=== PATIENT | female | born 1955 | race Caucasian/White ===

== ENCOUNTER 2016-10-05 22:38 | Inpatient (IN) | payer MEDICARE, MEDICAID ==
[~2016-10-05] VITALS: Ht 170.2 cm; Wt 66.6 kg
[~2016-10-05 22:38] MED LIST: B-CO-5 PO; BUME2TAB3 PO; CARV6.2551 PO; INSLANTI SC; LOPE2TAB PO; SEVE800T8 PO; TRAM50TA2 PO; ZOLP5TAB5 PO
[2016-10-06 00:03] LABS: Basophils # (auto) 0 uL; Basophils % (auto) 0.1 % (0.0-2.0); DEFINITIVE VIEW TRANSMISSION; Eosinophils # (auto) 0.3 uL; Eosinophils % (auto) 3.3 % (0.0-7.0); Hematocrit 31.7 % (36.0-46.0); Hemoglobin 9.9 g/dL (12.2-16.2); Lymphocytes # (auto) 0.7 uL; Lymphocytes % (auto) 8.3 % (10.0-50.0); Mean Corpuscular Hemoglobin 28.7 pg (28.0-32.0); Mean Corpuscular Hgb Conc. 31.1 g/dL (32.0-36.0); Mean Corpuscular Volume 92.5 fL (80.0-100.0); Mean Platelet Volume 9.4 fL (7.4-10.4); Monocytes # (auto) 0.5 uL; Monocytes % (auto) 5.4 % (0.0-12.0); Neutrophils # (auto) 7.2 uL; Neutrophils % (auto) 82.9 % (37.0-80.0); Platelet Count (auto) 218 10^3/uL (140-450); Red Cell Distribution Width 19.3 % (11.6-16.0); White Blood Cell 8.6 10^3/uL (4.4-10.8)
[2016-10-06 00:15] LABS: Partial Thromboplastin Time 32.2 sec (22.64-33.71)
[2016-10-06 00:16] LABS: Albumin 2.8 g/dL (3.4-5.0); BUN/Creatinine Ratio 6.7; Calcium 8.1 mg/dL (8.5-10.1); INR 1.48 (0.9-1.15); Magnesium 2.6 mg/dL (1.6-2.6); Potassium 4.1 mmol/L (3.5-5.1); Prothrombin Time 15.2 sec (9.37-12.3)
[2016-10-06 00:21] LABS: Bilirubin, Total 0.6 mg/dL (0.2-1.0); Total Protein 6.4 g/dL (6.4-8.2)
[2016-10-06 00:41] LABS: B-Type Natriuretic Peptide 2304.16 pg/mL (0-100); Temperature: 21.9 C (20.0-25.0)
[2016-10-06] MEDS ORDERED: FUROSEMIDE 40 MG/4 ML VIAL IV ONE (01:15)
[2016-10-06] MEDS ORDERED: ACETAMINOPHEN 325 MG TAB PO PRN (04:00)
[2016-10-06] MEDS ORDERED: NITROGLYCERIN 0.4 MG SL TAB SL PRN (04:00)
[2016-10-06] MEDS ORDERED: ONDANSETRON HCL 4 MG/2 ML VIAL IV PRN (04:00)
[2016-10-06] MEDS ORDERED: APIX5TAB PO (06:58)
[2016-10-06] MEDS: SODIUM CHLOR 0.9% PF (SALINE LOCK) 10ML VIAL IV SCH ×3 (07:53→22:28)
[2016-10-06 08:00] VITALS: BP 155/66
[2016-10-06 08:29] VITALS: BP 155/66
[2016-10-06 12:30] VITALS: BP 162/66
[2016-10-06 16:27] VITALS: BP 176/70
[2016-10-06] MEDS: CARVEDILOL 3.125 MG TAB PO SCH ×2 (18:30→22:27)
[2016-10-06] MEDS: cloNIDine HCL 0.1 MG TAB PO PRN (18:31)
[2016-10-06 20:00] VITALS: BP 154/85
[2016-10-06 22:12] VITALS: BP 154/85
[2016-10-07] MEDS: IPRATROPIUM BROM 0.5 MG/2.5ML INH SOL NEB SCH ×3 (00:58→11:34)
[2016-10-07] MEDS: ALBUTEROL SULF 2.5 MG/0.5ML(0.5%) NEB SOLN NEB SCH ×3 (00:58→11:34)
[2016-10-07 03:12] VITALS: BP 155/71
[2016-10-07 04:27] LABS: Urine Bilirubin Negative (Negative); Urine Color Yellow (Yellow); Urine Ketone Negative (Negative); Urine Nitrite Negative (Negative); Urine RBC 18 /hpf (0 - 4); Urine Squamous Epithelial Cell MANY /hpf (<5); Urine Urobilinogen Normal (Negative); Urine WBC Clumps PRESENT /hpf (None Seen)
[2016-10-07 04:32] LABS: Urine Blood 1+ /uL (Negative); Urine Glucose 2+ mg/dL (Normal)
[2016-10-07 05:00] VITALS: BP 159/66
[2016-10-07 06:11] LABS: Basophils # (auto) 0 uL; Basophils % (auto) 0.3 % (0.0-2.0); DEFINITIVE VIEW TRANSMISSION; Eosinophils # (auto) 0.3 uL; Eosinophils % (auto) 5.1 % (0.0-7.0); Hematocrit 30.2 % (36.0-46.0); Hemoglobin 9.9 g/dL (12.2-16.2); Lymphocytes # (auto) 0.6 uL; Mean Corpuscular Hemoglobin 29.8 pg (28.0-32.0); Mean Corpuscular Hgb Conc. 32.6 g/dL (32.0-36.0); Mean Corpuscular Volume 91.5 fL (80.0-100.0); Mean Platelet Volume 9.3 fL (7.4-10.4); Monocytes # (auto) 0.3 uL; Monocytes % (auto) 5.1 % (0.0-12.0); Neutrophils # (auto) 5.1 uL; Neutrophils % (auto) 79.5 % (37.0-80.0); Platelet Count (auto) 215 10^3/uL (140-450); Red Cell Distribution Width 19.3 % (11.6-16.0); White Blood Cell 6.5 10^3/uL (4.4-10.8)
[2016-10-07] MEDS: SODIUM CHLOR 0.9% PF (SALINE LOCK) 10ML VIAL IV SCH ×2 (06:14→14:00)
[2016-10-07 07:02] LABS: Albumin 2.8 g/dL (3.4-5.0); BUN/Creatinine Ratio 7.7; Bilirubin, Total 0.5 mg/dL (0.2-1.0); Calcium 7.6 mg/dL (8.5-10.1); Potassium 4.8 mmol/L (3.5-5.1); Total Protein 6.2 g/dL (6.4-8.2)
[2016-10-07 09:08] VITALS: BP 143/64
[2016-10-07] MEDS: CARVEDILOL 3.125 MG TAB PO SCH (09:30)
[2016-10-07 12:24] VITALS: BP 171/80
[2016-10-07] MEDS: cloNIDine HCL 0.1 MG TAB PO PRN (13:13)
[2016-10-07 15:32] VITALS: BP 171/80
[2016-10-13] MEDS ORDERED: APIXABAN 5 MG TAB PO SCH (22:00)
== END 2016-10-07 16:25 | disposition home or self-care (01) | DRG 291 ==
LOC: ER 22:38 → OVERFLOW 22:39 → TELE-WESTW 10-06 05:32
PROVIDERS: ADMIT Emergency Medicine; ATTEND Internal Medicine Pulmonary Disease
DX: I13.2 Hypertensive heart and chronic kidney disease with heart failure and with stage 5 chronic kidney disease, or end stage renal disease (principal); N18.6 End stage renal disease; I50.43 Acute on chronic combined systolic (congestive) and diastolic (congestive) heart failure; E11.22 Type 2 diabetes mellitus with diabetic chronic kidney disease; F03.90 Unspecified dementia, unspecified severity, without behavioral disturbance, psychotic disturbance, mood disturbance, and anxiety; I25.10 Atherosclerotic heart disease of native coronary artery without angina pectoris; R41.82 Altered mental status, unspecified; D64.9 Anemia, unspecified; J44.9 Chronic obstructive pulmonary disease, unspecified; K21.9 Gastro-esophageal reflux disease without esophagitis; Z86.711 Personal history of pulmonary embolism; Z87.01 Personal history of pneumonia (recurrent); Z87.891 Personal history of nicotine dependence; Z89.519 Acquired absence of unspecified leg below knee; Z99.2 Dependence on renal dialysis; Z88.6 Allergy status to analgesic agent; Z88.1 Allergy status to other antibiotic agents; Z88.8 Allergy status to other drugs, medicaments and biological substances; Z79.811 Long term (current) use of aromatase inhibitors; Z79.4 Long term (current) use of insulin; Z79.899 Other long term (current) drug therapy; Z90.49 Acquired absence of other specified parts of digestive tract; Z98.61 Coronary angioplasty status
CPT/HCPCS: 36415; 71010; 80053; 81001; 82962; 83036; 83735; 83880; 84484; 85025; 85379; 85610; 85730; 87081; 93005; 94640; 96374

== ENCOUNTER → 2016-10-25 | Outpatient (CLI) | payer MEDICARE, MEDICAID ==
[~2016-10-25] MED LIST changes: +ALBUTEROL SULF 2.5 MG/0.5ML(0.5%) NEB SOLN ONE; +APIX5TAB PO; -SEVE800T8 PO
== END | disposition home or self-care (01) ==
LOC: RT 09:29
PROVIDERS: ATTEND Internal Medicine Pulmonary Disease
DX: J44.9 Chronic obstructive pulmonary disease, unspecified (principal); J45.998 Other asthma
CPT/HCPCS: 94060; 94640

== ENCOUNTER 2017-04-07 03:59 | Inpatient (IN) | payer MEDICARE, MEDICAID ==
[~2017-04-07] VITALS: Ht 170.2 cm; Wt 63.9 kg
[~2017-04-07 03:59] MED LIST changes: +ALBUAER3 IN; -ALBUTEROL SULF 2.5 MG/0.5ML(0.5%) NEB SOLN ONE; +ALPR0.254 PO; +CHOL20007 OR; +LOSA50TA6 PO; +METO10TA3 PO; +TEMA30CA PO
[2017-04-07 04:40] LABS: Basophils # (auto) 0 uL; Basophils % (auto) 0.3 % (0.0-2.0); CONDITION Y; Eosinophils # (auto) 0.1 uL; Eosinophils % (auto) 0.8 % (0.0-7.0); Hematocrit 31.1 % (36.0-46.0); Hemoglobin 10.3 g/dL (12.2-16.2); Lymphocytes # (auto) 0.5 uL; Lymphocytes % (auto) 5.2 % (10.0-50.0); Mean Corpuscular Hemoglobin 30.8 pg (28.0-32.0); Mean Corpuscular Hgb Conc. 33.1 g/dL (32.0-36.0); Mean Platelet Volume 9.5 fL (7.4-10.4); Monocytes # (auto) 0.4 uL; Monocytes % (auto) 4.4 % (0.0-12.0); Neutrophils # (auto) 8.1 uL; Neutrophils % (auto) 89.3 % (37.0-80.0); Platelet Count (auto) 242 10^3/uL (140-450); Red Cell Distribution Width 14.7 % (11.6-16.0); White Blood Cell 9.1 10^3/uL (4.4-10.8)
[2017-04-07] MEDS ORDERED: ENALAPRILAT 1.25 MG/ML-1ML VIAL IV ONE (04:45)
[2017-04-07 05:05] LABS: INR 1.07 (0.9-1.15); Partial Thromboplastin Time 30.3 sec (22.64-33.71); Prothrombin Time 11.7 sec (9.37-12.3)
[2017-04-07 05:07] LABS: Albumin 3.1 g/dL (3.4-5.0); Calcium 8.3 mg/dL (8.5-10.1); Magnesium 2.9 mg/dL (1.6-2.6)
[2017-04-07 05:10] LABS: Total Protein 7.9 g/dL (6.4-8.2)
[2017-04-07] MEDS ORDERED: InsuLIN REG 1unit/0.01ml Soln (100units/ml) IV ONE ×2 (05:15→09:15)
[2017-04-07 05:17] LABS: Bilirubin, Total 0.6 mg/dL (0.2-1.0)
[2017-04-07 05:19] LABS: Potassium 5.7 mmol/L (3.5-5.1)
[2017-04-07 05:20] LABS: BUN/Creatinine Ratio 7.2
[2017-04-07] MEDS ORDERED: ALBUTEROL SULF 2.5 MG/0.5ML(0.5%) NEB SOLN ONE (05:25)
[2017-04-07] MEDS ORDERED: ALBUTEROL SULF 2.5 MG/0.5ML(0.5%) NEB SOLN NEB ONE (05:30)
[2017-04-07] MEDS ORDERED: SODIUM BICARBONATE 8.4 % INJ 50ML VIAL IV ONE (05:30)
[2017-04-07] MEDS ORDERED: SODIUM BICARBONATE 8.4% INJ 50ML SYRINGE ONE (05:37)
[2017-04-07 05:40] LABS: Allen Test Yes; Base Excess -0.4 mmol/L (-2.0-2.0); Blood 02Sat 95.2 % (96-100); Blood COHb 0.3 % (0.5-1.5); Blood MetHb 0.3 % (0.0-1.5); HCO3 23.1 mmol/L (22-26.0); HHb 4.8 % (0.0-5.0); MODE NASAL CANNULA; O2Hb 94.6 % (94.0-97.0); PCO2 34.1 mmHg (35.0-45.0); PCO2(T) 34.1 mmHg (35.0-45.0); PO2 79.1 mmHg (80.0-100.0); PO2(T) 79.1 mmHg (80.0-100.0); Sample Type Arterial; pH 7.449 (7.350-7.450)
[2017-04-07 05:56] LABS: B-Type Natriuretic Peptide > 5000.00 pg/mL (0-100)
[2017-04-07 05:58] LABS: Temperature: 22.9 C (20.0-25.0)
[2017-04-07] MEDS ORDERED: InsuLIN REG 1unit/0.01ml Soln (100units/ml) SC ONE (09:15)
[2017-04-07] MEDS ORDERED: TEMAZEPAM 15 MG CAP PO PRN (09:30)
[2017-04-07] MEDS ORDERED: ALPRAZolam 0.25 MG TAB PO PRN (09:30)
[2017-04-07] MEDS ORDERED: DEXTROSE (50%) 50ML SYRG IV PRN (09:30)
[2017-04-07] MEDS ORDERED: NITROGLYCERIN 0.4 MG SL TAB SL PRN (09:30)
[2017-04-07] MEDS ORDERED: APIXABAN 2.5 MG TAB PO SCH (10:00)
[2017-04-07] MEDS: CARVEDILOL 3.125 MG TAB PO SCH (10:08)
[2017-04-07] MEDS: ACCU-CHEK COMFORT CURVE STRIP VI SCH ×3 (12:07→23:04)
[2017-04-07] MEDS: InsuLIN REG 1unit/0.01ml Soln (100units/ml) SC SCH ×3 (12:10→20:00)
[2017-04-07] MEDS ORDERED: EPOETIN ALFA 10,000 UNIT/1 ML VIAL IV ONE (13:00)
[2017-04-07] MEDS ORDERED: SODIUM CHL 0.9% 1000 ML BAG XX ONE (13:00)
[2017-04-07] MEDS ORDERED: THIAMINE HCL 100 MG/ML 2ML VIAL IV ONE (14:15)
[2017-04-07] MEDS ORDERED: B-COMPLEX W/ C & FOLIC ACID(NEPHROVITE TAB) PO ONE (14:15)
[2017-04-07 15:22] VITALS: BP 134/71
[2017-04-07 16:55] VITALS: BP 134/71
[2017-04-07] MEDS ORDERED: ALBUMIN 5% 250 ML IV ONE (21:45)
[2017-04-07 22:00] VITALS: BP 124/63
[2017-04-07] MEDS: INSULIN DETEMIR(LEVEMIR) 1unit/0.01ml Soln (100units/ml) SC SCH (22:00)
[2017-04-07] MEDS ORDERED: DEXTROSE 10% 1,000 ML IV ONE (22:45)
[2017-04-08] MEDS: ACCU-CHEK COMFORT CURVE STRIP VI SCH ×6 (01:41→23:59)
[2017-04-08] MEDS: InsuLIN REG 1unit/0.01ml Soln (100units/ml) SC SCH ×6 (04:00→23:59)
[2017-04-08 05:00] VITALS: BP 103/61
[2017-04-08 06:10] LABS: Basophils # (auto) 0 uL; Basophils % (auto) 0.5 % (0.0-2.0); CONDITION Y; Eosinophils # (auto) 0.2 uL; Eosinophils % (auto) 3.7 % (0.0-7.0); Hematocrit 34.6 % (36.0-46.0); Hemoglobin 11.4 g/dL (12.2-16.2); Lymphocytes # (auto) 0.7 uL; Lymphocytes % (auto) 10.9 % (10.0-50.0); Mean Corpuscular Hemoglobin 30.9 pg (28.0-32.0); Mean Corpuscular Volume 93.6 fL (80.0-100.0); Mean Platelet Volume 9.1 fL (7.4-10.4); Monocytes # (auto) 0.4 uL; Monocytes % (auto) 6.3 % (0.0-12.0); Neutrophils # (auto) 4.7 uL; Neutrophils % (auto) 78.6 % (37.0-80.0); Platelet Count (auto) 268 10^3/uL (140-450); Red Cell Distribution Width 15.2 % (11.6-16.0)
[2017-04-08 06:32] LABS: Albumin 2.5 g/dL (3.4-5.0); BUN/Creatinine Ratio 6.3; Calcium 8.2 mg/dL (8.5-10.1); Potassium 4.2 mmol/L (3.5-5.1)
[2017-04-08 06:35] LABS: Bilirubin, Total 0.7 mg/dL (0.2-1.0); Total Protein 6.5 g/dL (6.4-8.2)
[2017-04-08 09:00] VITALS: BP 117/57
[2017-04-08] MEDS ORDERED: THIAMINE HCL 100 MG/ML 2ML VIAL IV SCH (10:00)
[2017-04-08] MEDS: CARVEDILOL 3.125 MG TAB PO SCH (10:02)
[2017-04-08] MEDS: B-COMPLEX W/ C & FOLIC ACID(NEPHROVITE TAB) PO SCH (10:02)
[2017-04-08] MEDS: INSULIN DETEMIR(LEVEMIR) 1unit/0.01ml Soln (100units/ml) SC SCH (10:03)
[2017-04-08 13:00] VITALS: BP 119/56
[2017-04-08 17:00] VITALS: BP 125/72
[2017-04-08] MEDS ORDERED: DEXTROSE (50%) 50ML SYRG IV PRN (17:00)
[2017-04-08] MEDS ORDERED: InsuLIN REG 1unit/0.01ml Soln (100units/ml) SC SCH ×2 (17:00→20:00)
[2017-04-08] MEDS ORDERED: ACCU-CHEK COMFORT CURVE STRIP VI SCH (17:00)
[2017-04-08 22:00] VITALS: BP 122/60
[2017-04-08] MEDS ORDERED: INSULIN DETEMIR(LEVEMIR) 1unit/0.01ml Soln (100units/ml) SC SCH (22:00)
[2017-04-08] MEDS: ALBUTEROL SULF 2.5 MG/0.5ML(0.5%) NEB SOLN NEB PRN (23:08)
[2017-04-09] MEDS: ACCU-CHEK COMFORT CURVE STRIP VI SCH ×3 (04:00→12:10)
[2017-04-09] MEDS: InsuLIN REG 1unit/0.01ml Soln (100units/ml) SC SCH ×3 (04:00→11:44)
[2017-04-09 05:00] VITALS: BP 136/56
[2017-04-09 06:29] LABS: Hematocrit 30.6 % (36.0-46.0); Hemoglobin 10.3 g/dL (12.2-16.2)
[2017-04-09] MEDS: ALBUTEROL SULF 2.5 MG/0.5ML(0.5%) NEB SOLN NEB PRN (06:50)
[2017-04-09 06:53] LABS: Calcium 8.6 mg/dL (8.5-10.1); Potassium 4.7 mmol/L (3.5-5.1)
[2017-04-09 09:00] VITALS: BP 125/67
[2017-04-09] MEDS ORDERED: EPOETIN ALFA 10,000 UNIT/1 ML VIAL IV ONE (10:00)
[2017-04-09] MEDS ORDERED: THIAMINE HCL 100 MG TAB PO SCH (10:00)
[2017-04-09] MEDS ORDERED: CARVEDILOL 3.125 MG TAB PO SCH (10:00)
[2017-04-09 12:37] VITALS: BP 119/63
[2017-04-09] MEDS: B-COMPLEX W/ C & FOLIC ACID(NEPHROVITE TAB) PO SCH (12:42)
[2017-04-09] MEDS ORDERED: INSULIN DETEMIR(LEVEMIR) 1unit/0.01ml Soln (100units/ml) SC ONE (13:45)
[2017-04-09 14:59] VITALS: BP 119/63
== END 2017-04-09 17:57 | disposition home or self-care (01) | DRG 291 ==
LOC: ER 03:59 → EDBD 03:59 → TELE 04:00 → TELE-E-ADS 12:17 → TELE-EAST 14:52
PROVIDERS: ADMIT Nurse Practitioner Family; ATTEND Internal Medicine
PROC: 5A1D00Z (ICD-10-PCS; principal; 2017-04-07)
DX: I13.2 Hypertensive heart and chronic kidney disease with heart failure and with stage 5 chronic kidney disease, or end stage renal disease (principal); N18.6 End stage renal disease; J96.10 Chronic respiratory failure, unspecified whether with hypoxia or hypercapnia; E87.5 Hyperkalemia; K86.1 Other chronic pancreatitis; E11.22 Type 2 diabetes mellitus with diabetic chronic kidney disease; I50.33 Acute on chronic diastolic (congestive) heart failure; J98.11 Atelectasis; F03.90 Unspecified dementia, unspecified severity, without behavioral disturbance, psychotic disturbance, mood disturbance, and anxiety; D64.9 Anemia, unspecified; Z99.2 Dependence on renal dialysis; K21.9 Gastro-esophageal reflux disease without esophagitis; J44.9 Chronic obstructive pulmonary disease, unspecified; F10.10 Alcohol abuse, uncomplicated; D63.8 Anemia in other chronic diseases classified elsewhere; E11.43 Type 2 diabetes mellitus with diabetic autonomic (poly)neuropathy; E11.65 Type 2 diabetes mellitus with hyperglycemia; F41.9 Anxiety disorder, unspecified; I25.10 Atherosclerotic heart disease of native coronary artery without angina pectoris; I70.0 Atherosclerosis of aorta; I73.9 Peripheral vascular disease, unspecified; K31.84 Gastroparesis; Z79.01 Long term (current) use of anticoagulants; Z79.4 Long term (current) use of insulin; Z79.899 Other long term (current) drug therapy; Z82.49 Family history of ischemic heart disease and other diseases of the circulatory system; Z85.038 Personal history of other malignant neoplasm of large intestine; Z83.3 Family history of diabetes mellitus; Z87.891 Personal history of nicotine dependence; Z89.519 Acquired absence of unspecified leg below knee; Z99.81 Dependence on supplemental oxygen; Z90.49 Acquired absence of other specified parts of digestive tract; Z98.51 Tubal ligation status; Z95.5 Presence of coronary angioplasty implant and graft
CPT/HCPCS: 36415; 36600; 71010; 80048; 80053; 80320; 82805; 82962; 83036; 83735; 83880; 84484; 85014; 85018; 85025; 85610; 85730; 90935; 93005; 94640; 96374; 96375; 96376; J0885; J1815

== ENCOUNTER → 2017-05-21 | Outpatient (CLI) | payer MEDICARE, MEDICAID ==
[~2017-05-21] MED LIST changes: -ALBUAER3 IN; -APIX5TAB PO; -BUME2TAB3 PO; +CALC500C3 PO; -METO10TA3 PO; -ZOLP5TAB5 PO
== END | disposition home or self-care (01) ==
LOC: XYW 10:35
PROVIDERS: ATTEND Internal Medicine Cardiovascular Disease
DX: I13.0 Hypertensive heart and chronic kidney disease with heart failure and stage 1 through stage 4 chronic kidney disease, or unspecified chronic kidney disease (principal); I50.42 Chronic combined systolic (congestive) and diastolic (congestive) heart failure; E11.9 Type 2 diabetes mellitus without complications; N18.6 End stage renal disease; I25.10 Atherosclerotic heart disease of native coronary artery without angina pectoris
CPT/HCPCS: 93306

== ENCOUNTER 2017-08-22 15:44 | Inpatient (IN) | payer MEDICARE, MEDICAID ==
[~2017-08-22] VITALS: Ht 170.2 cm; Wt 60.9 kg
[2017-08-22 17:20] LABS: Basophils # (auto) 0 uL; Eosinophils # (auto) 0.1 uL; Hematocrit 40.8 % (36.0-46.0); Hemoglobin 13.6 g/dL (12.2-16.2); Lymphocytes # (auto) 0.7 uL; Lymphocytes % (auto) 15.5 % (10.0-50.0); Mean Corpuscular Hemoglobin 31.5 pg (28.0-32.0); Mean Corpuscular Hgb Conc. 33.4 g/dL (32.0-36.0); Mean Corpuscular Volume 94.3 fL (80.0-100.0); Monocytes # (auto) 0.5 uL; Monocytes % (auto) 11.4 % (0.0-12.0); Neutrophils # (auto) 3.3 uL; Neutrophils % (auto) 70.1 % (37.0-80.0); Nucleated Red Blood Cells % 0.1 %; Platelet Count (auto) 143 10^3/uL (140-450); Red Blood Cells 4.33 10^6/uL (4.0-5.20); Red Cell Distribution Width 16.1 % (11.8-14.3); White Blood Cell 4.8 10^3/uL (4.4-10.8)
[2017-08-22 17:35] LABS: Albumin 3.3 g/dL (3.4-5.0); BUN/Creatinine Ratio 6.6; Calcium 8.7 mg/dL (8.5-10.1); INR 1.23 (0.9-1.15); Partial Thromboplastin Time 29.6 sec (22.64-33.71); Prothrombin Time 13.4 sec (9.37-12.3)
[2017-08-22 17:38] LABS: Bilirubin, Total 0.8 mg/dL (0.2-1.0); Total Protein 7.4 g/dL (6.4-8.2)
[2017-08-23] MEDS ORDERED: SODIUM CHLORIDE 0.9% 1,000 ML IV ONE
[2017-08-23] MEDS ORDERED: DEXTROSE (50%) 50ML SYRG IV PRN (07:00)
[2017-08-23] MEDS ORDERED: cloNIDine HCL 0.1 MG TAB PO PRN (07:00)
[2017-08-23] MEDS ORDERED: TEMAZEPAM 15 MG CAP PO PRN (07:00)
[2017-08-23] MEDS ORDERED: ONDANSETRON HCL 4 MG/2 ML VIAL IV PRN (07:00)
[2017-08-23] MEDS ORDERED: HYDROcodone-ACET 5/325MG TAB PO PRN (07:00)
[2017-08-23] MEDS ORDERED: ACETAMINOPHEN 325 MG TAB PO PRN (07:00)
[2017-08-23] MEDS ORDERED: LOPERAMIDE HCL 2 MG CAP PO PRN (07:00)
[2017-08-23] MEDS: CALCIUM CARB 500 MG CHEW TAB PO SCH ×3 (08:12→17:27)
[2017-08-23] MEDS: cefTRIAXone 1GM/10ml IVPUSH 10 ML IV SCH (08:12)
[2017-08-23] MEDS ORDERED: LOSARTAN POTASSIUM 50 MG TAB PO SCH (10:00)
[2017-08-23] MEDS: ACCU-CHEK COMFORT CURVE STRIP VI SCH ×2 (11:44→17:27)
[2017-08-23] MEDS: InsuLIN REG 1unit/0.01ml Soln (100units/ml) SC SCH ×2 (11:45→17:28)
[2017-08-23 13:00] VITALS: BP 159/85
[2017-08-23] MEDS: B-COMPLEX W/ C & FOLIC ACID(NEPHROVITE TAB) PO SCH (13:50)
[2017-08-23] MEDS: PANTOPRAZOLE 40 MG TAB PO SCH (13:50)
[2017-08-23] MEDS: CARVEDILOL 3.125 MG TAB PO SCH ×2 (13:50→22:18)
[2017-08-23] MEDS: ENOXAPARIN SOD 30 MG/0.3 ML SYRINGE SC SCH (13:51)
[2017-08-23 13:55] VITALS: BP 195/94
[2017-08-23] MEDS ORDERED: VANCOMYCIN PER PHARMACY 0 MG IV SCH (16:00)
[2017-08-23] MEDS ORDERED: VANCOMYCIN 1GM/250ML 250 ML IV ONE (16:45)
[2017-08-23 17:04] VITALS: BP 159/67
[2017-08-23] MEDS ORDERED: TRAZ50TA2 PO (17:44)
[2017-08-23 22:57] VITALS: BP 153/67
[2017-08-24] MEDS: ACCU-CHEK COMFORT CURVE STRIP VI SCH ×3 (00:27→12:00)
[2017-08-24 05:30] VITALS: BP 145/63
[2017-08-24] MEDS: InsuLIN REG 1unit/0.01ml Soln (100units/ml) SC SCH ×3 (05:34→12:00)
[2017-08-24 07:15] LABS: Basophils # (auto) 0 uL; Basophils % (auto) 0.7 % (0.0-2.0); Eosinophils # (auto) 0.1 uL; Eosinophils % (auto) 2.3 % (0.0-7.0); Hematocrit 41.6 % (36.0-46.0); Hemoglobin 13.8 g/dL (12.2-16.2); Lymphocytes # (auto) 0.3 uL; Lymphocytes % (auto) 9.5 % (10.0-50.0); Mean Corpuscular Hemoglobin 31.1 pg (28.0-32.0); Mean Corpuscular Hgb Conc. 33.1 g/dL (32.0-36.0); Mean Corpuscular Volume 93.9 fL (80.0-100.0); Monocytes # (auto) 0.5 uL; Monocytes % (auto) 14.6 % (0.0-12.0); Neutrophils # (auto) 2.6 uL; Neutrophils % (auto) 72.9 % (37.0-80.0); Nucleated Red Blood Cells % 0.1 %; Platelet Count (auto) 137 10^3/uL (140-450); Red Blood Cells 4.43 10^6/uL (4.0-5.20); Red Cell Distribution Width 16.3 % (11.8-14.3); White Blood Cell 3.6 10^3/uL (4.4-10.8)
[2017-08-24 07:35] LABS: Albumin 3.3 g/dL (3.4-5.0); BUN/Creatinine Ratio 5.9; Bilirubin, Total 0.7 mg/dL (0.2-1.0); Calcium 8.7 mg/dL (8.5-10.1); Potassium 4.8 mmol/L (3.5-5.1); Total Protein 7.2 g/dL (6.4-8.2)
[2017-08-24] MEDS: cefTRIAXone 1GM/10ml IVPUSH 10 ML IV SCH (08:34)
[2017-08-24] MEDS: CALCIUM CARB 500 MG CHEW TAB PO SCH ×2 (08:34→12:00)
[2017-08-24 09:00] VITALS: BP 153/65
[2017-08-24] MEDS: CARVEDILOL 3.125 MG TAB PO SCH (10:36)
[2017-08-24] MEDS: PANTOPRAZOLE 40 MG TAB PO SCH (10:37)
[2017-08-24] MEDS: B-COMPLEX W/ C & FOLIC ACID(NEPHROVITE TAB) PO SCH (10:37)
[2017-08-24] MEDS: ENOXAPARIN SOD 30 MG/0.3 ML SYRINGE SC SCH (10:37)
[2017-08-24 13:00] VITALS: BP 150/73
== END 2017-08-24 13:30 | disposition home or self-care (01) | DRG 871 ==
LOC: ER 15:44 → EDBD 15:44 → TELE 15:45 → TELE-WESTW 08-23 09:38
PROVIDERS: ADMIT Nurse Practitioner; ATTEND Nurse Practitioner
PROC: 5A1D70Z Performance of Urinary Filtration, Intermittent, Less than 6 Hours Per Day (ICD-10-PCS; principal; 2017-08-23)
DX: A41.9 Sepsis, unspecified organism (principal); N18.6 End stage renal disease; E11.22 Type 2 diabetes mellitus with diabetic chronic kidney disease; E11.51 Type 2 diabetes mellitus with diabetic peripheral angiopathy without gangrene; I12.0 Hypertensive chronic kidney disease with stage 5 chronic kidney disease or end stage renal disease; E87.5 Hyperkalemia; K52.9 Noninfective gastroenteritis and colitis, unspecified; I25.10 Atherosclerotic heart disease of native coronary artery without angina pectoris; D63.1 Anemia in chronic kidney disease; J44.9 Chronic obstructive pulmonary disease, unspecified; Z99.2 Dependence on renal dialysis; Z79.4 Long term (current) use of insulin; Z80.0 Family history of malignant neoplasm of digestive organs; Z82.49 Family history of ischemic heart disease and other diseases of the circulatory system; Z83.3 Family history of diabetes mellitus; Z85.038 Personal history of other malignant neoplasm of large intestine; Z89.511 Acquired absence of right leg below knee; Z88.4 Allergy status to anesthetic agent; Z88.1 Allergy status to other antibiotic agents; Z88.8 Allergy status to other drugs, medicaments and biological substances; Z90.49 Acquired absence of other specified parts of digestive tract; Z95.5 Presence of coronary angioplasty implant and graft; Z98.51 Tubal ligation status
CPT/HCPCS: 36415; 71045; 74176; 80053; 80202; 82962; 83605; 84132; 85025; 85610; 85730; 87040; 87081; 87400; 87493; 90935; 93005; 96361; 96374; J1815

== ENCOUNTER 2017-08-25 16:29 | Inpatient (IN) | payer MEDICARE, MEDICAID ==
[~2017-08-25] VITALS: Ht 170.2 cm; Wt 61.3 kg
[~2017-08-25 16:29] MED LIST changes: +TRAZ50TA2 PO
[2017-08-25 19:24] LABS: Basophils # (auto) 0 uL; Basophils % (auto) 0.7 % (0.0-2.0); Eosinophils # (auto) 0.2 uL; Hemoglobin 14.2 g/dL (12.2-16.2); Lymphocytes # (auto) 0.5 uL; Lymphocytes % (auto) 13.1 % (10.0-50.0); Mean Corpuscular Hemoglobin 31.2 pg (28.0-32.0); Mean Corpuscular Volume 94.6 fL (80.0-100.0); Monocytes # (auto) 0.7 uL; Monocytes % (auto) 16.7 % (0.0-12.0); Neutrophils # (auto) 2.7 uL; Neutrophils % (auto) 65.5 % (37.0-80.0); Platelet Count (auto) 160 10^3/uL (140-450); Red Blood Cells 4.55 10^6/uL (4.0-5.20); Red Cell Distribution Width 16.1 % (11.8-14.3); White Blood Cell 4.2 10^3/uL (4.4-10.8)
[2017-08-25 20:17] LABS: BUN/Creatinine Ratio 5.9; Calcium 8.7 mg/dL (8.5-10.1); Potassium 5.4 mmol/L (3.5-5.1)
[2017-08-25 20:18] LABS: Albumin 3.3 g/dL (3.4-5.0); Bilirubin, Total 0.6 mg/dL (0.2-1.0); Total Protein 7.6 g/dL (6.4-8.2)
[2017-08-26] MEDS ORDERED: CALCIUM GLUC 4.65meq/50ml D5AE 50 ML IV ONE
[2017-08-26] MEDS ORDERED: ONDANSETRON ODT 4 MG TAB PO ONE
[2017-08-26] MEDS ORDERED: InsuLIN REG 1unit/0.01ml Soln (100units/ml) IV ONE
[2017-08-26] MEDS ORDERED: SODIUM BICARBONATE 8.4 % INJ 50ML VIAL IV ONE
[2017-08-26] MEDS ORDERED: DEXTROSE (50%) 50ML SYRG IV ONE
[2017-08-26] MEDS ORDERED: ALPRAZolam 0.25 MG TAB PO PRN (01:45)
[2017-08-26] MEDS ORDERED: ACETAMINOPHEN 325 MG TAB PO PRN (01:45)
[2017-08-26] MEDS ORDERED: HYDROcodone-ACET 5/325MG TAB PO PRN (01:45)
[2017-08-26] MEDS ORDERED: ONDANSETRON HCL 4 MG/2 ML VIAL IV PRN (01:45)
[2017-08-26] MEDS ORDERED: DEXTROSE (50%) 50ML SYRG IV PRN (01:45)
[2017-08-26] MEDS ORDERED: TEMAZEPAM 15 MG CAP PO PRN (01:45)
[2017-08-26] MEDS: InsuLIN REG 1unit/0.01ml Soln (100units/ml) SC SCH ×4 (06:00→23:57)
[2017-08-26] MEDS: ACCU-CHEK COMFORT CURVE STRIP VI SCH ×4 (06:18→23:57)
[2017-08-26] MEDS: CALCIUM CARB 500 MG CHEW TAB PO SCH ×3 (08:14→17:04)
[2017-08-26 08:30] VITALS: BP 149/86
[2017-08-26] MEDS: PANTOPRAZOLE 40 MG TAB PO SCH (09:57)
[2017-08-26] MEDS: LOSARTAN POTASSIUM 50 MG TAB PO SCH (09:57)
[2017-08-26] MEDS: CARVEDILOL 3.125 MG TAB PO SCH ×2 (09:58→22:01)
[2017-08-26] MEDS: HEPARIN SODIUM (PORCINE) 5000 UNITS/ML 1ML VIAL SC SCH ×2 (10:00→22:02)
[2017-08-26 13:00] VITALS: BP 137/72
[2017-08-26] MEDS ORDERED: SODIUM CHL 0.9% 1000 ML BAG XX ONE (15:30)
[2017-08-26] MEDS: VANCOMYCIN HCL 125MG/5ML ORAL SOL PO SCH ×2 (16:00→22:00)
[2017-08-26 17:00] VITALS: BP 130/76
[2017-08-26 22:32] VITALS: BP 154/57
[2017-08-27] MEDS: VANCOMYCIN HCL 125MG/5ML ORAL SOL PO SCH ×2 (03:36→10:00)
[2017-08-27 04:17] VITALS: BP 140/62
[2017-08-27 06:00] LABS: Basophils # (auto) 0 uL; Basophils % (auto) 0.6 % (0.0-2.0); Eosinophils # (auto) 0.1 uL; Eosinophils % (auto) 3.2 % (0.0-7.0); Hematocrit 38.7 % (36.0-46.0); Lymphocytes # (auto) 0.5 uL; Lymphocytes % (auto) 13.3 % (10.0-50.0); Mean Corpuscular Hemoglobin 31.8 pg (28.0-32.0); Mean Corpuscular Hgb Conc. 33.5 g/dL (32.0-36.0); Mean Corpuscular Volume 94.8 fL (80.0-100.0); Monocytes # (auto) 0.6 uL; Monocytes % (auto) 17.8 % (0.0-12.0); Neutrophils # (auto) 2.3 uL; Neutrophils % (auto) 65.1 % (37.0-80.0); Nucleated Red Blood Cells % 0.1 %; Platelet Count (auto) 129 10^3/uL (140-450); Red Blood Cells 4.08 10^6/uL (4.0-5.20); Red Cell Distribution Width 16.2 % (11.8-14.3); White Blood Cell 3.5 10^3/uL (4.4-10.8)
[2017-08-27] MEDS: InsuLIN REG 1unit/0.01ml Soln (100units/ml) SC SCH ×2 (06:08)
[2017-08-27] MEDS: ACCU-CHEK COMFORT CURVE STRIP VI SCH (06:08)
[2017-08-27 06:29] LABS: Potassium 4.7 mmol/L (3.5-5.1)
[2017-08-27 06:30] LABS: Albumin 2.8 g/dL (3.4-5.0); BUN/Creatinine Ratio 4.9; Bilirubin, Total 0.4 mg/dL (0.2-1.0); Calcium 8.2 mg/dL (8.5-10.1); Total Protein 6.5 g/dL (6.4-8.2)
[2017-08-27] MEDS: CALCIUM CARB 500 MG CHEW TAB PO SCH (08:31)
[2017-08-27 08:46] VITALS: BP 124/62
[2017-08-27] MEDS: LOSARTAN POTASSIUM 50 MG TAB PO SCH (10:00)
[2017-08-27] MEDS: CARVEDILOL 3.125 MG TAB PO SCH (10:00)
[2017-08-27] MEDS: HEPARIN SODIUM (PORCINE) 5000 UNITS/ML 1ML VIAL SC SCH (10:00)
[2017-08-27] MEDS: PANTOPRAZOLE 40 MG TAB PO SCH (10:00)
[2017-08-27 11:11] VITALS: BP 124/62
[2017-08-27 11:23] VITALS: BP 124/62
== END 2017-08-27 12:24 | disposition home or self-care (01) | DRG 640 ==
LOC: ER 16:29 → OVERFLOW 16:30 → TELE-CENTR 08-26 08:28 → CENTRAL 08-26 08:44
PROVIDERS: ADMIT Nurse Practitioner; ATTEND Internal Medicine
PROC: 5A1D70Z Performance of Urinary Filtration, Intermittent, Less than 6 Hours Per Day (ICD-10-PCS; principal; 2017-08-26)
DX: E87.5 Hyperkalemia (principal); N18.6 End stage renal disease; E11.22 Type 2 diabetes mellitus with diabetic chronic kidney disease; I12.0 Hypertensive chronic kidney disease with stage 5 chronic kidney disease or end stage renal disease; A04.72 Enterocolitis due to Clostridium difficile, not specified as recurrent; E87.8 Other disorders of electrolyte and fluid balance, not elsewhere classified; F32.9 Major depressive disorder, single episode, unspecified; F41.9 Anxiety disorder, unspecified; I25.10 Atherosclerotic heart disease of native coronary artery without angina pectoris; J44.9 Chronic obstructive pulmonary disease, unspecified; Z80.0 Family history of malignant neoplasm of digestive organs; Z82.49 Family history of ischemic heart disease and other diseases of the circulatory system; Z83.3 Family history of diabetes mellitus; Z85.038 Personal history of other malignant neoplasm of large intestine; Z89.519 Acquired absence of unspecified leg below knee; Z90.49 Acquired absence of other specified parts of digestive tract; Z98.41 Cataract extraction status, right eye; Z99.2 Dependence on renal dialysis; Z88.8 Allergy status to other drugs, medicaments and biological substances; Z87.891 Personal history of nicotine dependence; Z98.51 Tubal ligation status; Z95.5 Presence of coronary angioplasty implant and graft
CPT/HCPCS: 36415; 71045; 80053; 82962; 84132; 85025; 87081; 90935; 93005; 96374; 96375; J1642; J1815; Q0162

== ENCOUNTER → 2017-09-30 | Outpatient (CLI) | payer MEDICARE, MEDICAID ==
[~2017-09-30] MED LIST changes: +ALBU1AER4 IN; +APIX5TAB PO; +ASPI-231 PO; +AZIT250T7 PO; +CARV3.1240 PO; +IBUP600T27 PO; +INSDRIP IV; +INSDRIP SUBCUT; +LACT20PA4 PO; +MIDO10TA PO; +ONDA4TAB5 PO; +PRE5T PO; +ROSU40TA PO; +SEVE800T8 PO; +TEMA30CA5 PO; +[UNRECOGNIZED DRUG - CODE] TOP
[2017-09-30 15:02] LABS: Basophils # (auto) 0 uL; Basophils % (auto) 0.4 % (0.0-2.0); Eosinophils # (auto) 0.1 uL; Eosinophils % (auto) 2.3 % (0.0-7.0); Hematocrit 41.7 % (36.0-46.0); Hemoglobin 13.8 g/dL (12.2-16.2); Lymphocytes # (auto) 0.6 uL; Lymphocytes % (auto) 9.3 % (10.0-50.0); Mean Corpuscular Hemoglobin 31.4 pg (28.0-32.0); Mean Corpuscular Hgb Conc. 33.1 g/dL (32.0-36.0); Mean Corpuscular Volume 94.8 fL (80.0-100.0); Monocytes # (auto) 0.7 uL; Monocytes % (auto) 10.9 % (0.0-12.0); Neutrophils # (auto) 5.1 uL; Neutrophils % (auto) 77.1 % (37.0-80.0); Nucleated Red Blood Cells % 0.1 %; Platelet Count (auto) 177 10^3/uL (140-450); White Blood Cell 6.6 10^3/uL (4.4-10.8)
[2017-09-30 15:08] LABS: INR 1.17 (0.9-1.15); Partial Thromboplastin Time 30.5 sec (22.64-33.71); Prothrombin Time 12.8 sec (9.37-12.3)
[2017-09-30 15:29] LABS: Albumin 2.9 g/dL (3.4-5.0); BUN/Creatinine Ratio 2.9; Bilirubin, Total 0.6 mg/dL (0.2-1.0); Calcium 8.9 mg/dL (8.5-10.1); Potassium 3.9 mmol/L (3.5-5.1); Total Protein 7.4 g/dL (6.4-8.2)
== END | disposition home or self-care (01) ==
LOC: LAB 14:21
PROVIDERS: ATTEND Internal Medicine
DX: Z01.810 Encounter for preprocedural cardiovascular examination (principal); I27.20 Pulmonary hypertension, unspecified; I12.0 Hypertensive chronic kidney disease with stage 5 chronic kidney disease or end stage renal disease; E11.22 Type 2 diabetes mellitus with diabetic chronic kidney disease; N18.6 End stage renal disease
CPT/HCPCS: 36415; 80053; 85025; 85610; 85730

== ENCOUNTER 2017-10-03 07:19 | Inpatient (IN) | payer MEDICARE, MEDICAID ==
[~2017-10-03] VITALS: Ht 172.7 cm; Wt 64.0 kg
[~2017-10-03 07:19] MED LIST changes: -ALBU1AER4 IN; -APIX5TAB PO; -ASPI-231 PO; -AZIT250T7 PO; -CARV3.1240 PO; -IBUP600T27 PO; -INSDRIP IV; -INSDRIP SUBCUT; -LACT20PA4 PO; -MIDO10TA PO; -ONDA4TAB5 PO; -PRE5T PO; -ROSU40TA PO; -SEVE800T8 PO; -TEMA30CA5 PO; -[UNRECOGNIZED DRUG - CODE] TOP
[2017-10-03] MEDS ORDERED: IODIXANOL 320MG/ML 100ML BTL IV ONE (09:00)
[2017-10-03] MEDS ORDERED: LIDOCAINE 2%HCL (LOCAL ANESTH.) INJ 20ML MDV ONE (09:01)
[2017-10-03] MEDS ORDERED: ANGIOMAX 250 MG VIAL IV ONE (09:05)
[2017-10-03] MEDS ORDERED: fentaNYL CITRATE 100 MCG/2 ML VL ONE (09:06)
[2017-10-03] MEDS ORDERED: MIDAZOLAM HCL 1MG/1ML-2 ML VIAL ONE (09:06)
[2017-10-03] MEDS ORDERED: SODIUM CHL 0.9% 50 ML ONE (09:06)
[2017-10-03] MEDS ORDERED: HYDROmorphone HCL 2 MG/ML VL IV ONE (11:00)
[2017-10-03] MEDS ORDERED: HYDROmorphone HCL 2 MG/ML VL ONE (11:33)
[2017-10-03] MEDS ORDERED: ALPRAZolam 0.25 MG TAB PO PRN (15:15)
[2017-10-03] MEDS ORDERED: LOPERAMIDE HCL 2 MG CAP PO SCH (15:15)
[2017-10-03] MEDS ORDERED: MORPHINE SULFATE 4 MG/ML SYR/VIAL IV PRN (15:30)
[2017-10-03] MEDS ORDERED: NITROGLYCERIN 0.4 MG SL TAB SL PRN (15:30)
[2017-10-03] MEDS ORDERED: LOPERAMIDE HCL 2 MG CAP PO PRN (15:45)
[2017-10-03] MEDS ORDERED: TEMAZEPAM 15 MG CAP PO PRN (15:45)
[2017-10-03] MEDS ORDERED: TEMAZEPAM PO SCH (18:00)
[2017-10-03] MEDS: CALCIUM CARB 500 MG CHEW TAB PO SCH (18:11)
[2017-10-03] MEDS: traMADol HCL 50 MG TAB PO PRN (18:22)
[2017-10-03] MEDS: CARVEDILOL 3.125 MG TAB PO SCH (21:33)
[2017-10-03] MEDS: CHOLECALCIFEROL (VITD3) 1,000 UNIT TAB PO SCH (21:34)
[2017-10-03 22:00] VITALS: BP 147/61
[2017-10-03] MEDS ORDERED: PATIENTS OWN MEDICATION (Cholecalciferol (Vitamin D3) 2,000 UNIT) OR SCH (22:00)
[2017-10-03] MEDS ORDERED: ATORVASTATIN 20 MG TAB PO SCH (22:00)
[2017-10-03] MEDS ORDERED: traZODone HCL 50 MG TAB PO SCH (22:00)
[2017-10-03] MEDS ORDERED: LOSARTAN POTASSIUM 50 MG TAB PO SCH (22:00)
[2017-10-03] MEDS ORDERED: CARVEDILOL 3.125 MG PO SCH (22:00)
[2017-10-04] MEDS: traMADol HCL 50 MG TAB PO PRN ×2 (00:53→09:07)
[2017-10-04 05:00] VITALS: BP 121/58
[2017-10-04 08:46] VITALS: BP 115/55
[2017-10-04] MEDS: CHOLECALCIFEROL (VITD3) 1,000 UNIT TAB PO SCH (09:06)
[2017-10-04] MEDS: CARVEDILOL 3.125 MG TAB PO SCH (09:06)
[2017-10-04] MEDS: CALCIUM CARB 500 MG CHEW TAB PO SCH ×2 (09:07→12:14)
[2017-10-04] MEDS ORDERED: B-COMPLEX W/ C & FOLIC ACID(NEPHROVITE TAB) PO SCH (10:00)
[2017-10-04] MEDS ORDERED: INSULIN LANTUS (GLARGINE) 1 /0.01ml (100units/ml) SC SCH (10:00)
[2017-10-04] MEDS ORDERED: PATIENTS OWN MEDICATION (B-Complex W/ C & Folic Acid (Rena-Vite) 1 TAB) PO SCH (10:00)
[2017-10-04 11:56] VITALS: BP 105/69
[2017-10-04 14:52] VITALS: BP 105/69
== END 2017-10-04 15:50 | disposition home or self-care (01) | DRG 287 ==
LOC: CATH 07:19 → TELE-CENTR 07:20
PROVIDERS: ADMIT Internal Medicine; ATTEND Internal Medicine
PROC: 4A023N7 Measurement of Cardiac Sampling and Pressure, Left Heart, Percutaneous Approach (ICD-10-PCS; principal; 2017-10-03)
PROC: B2111ZZ Fluoroscopy of Multiple Coronary Arteries using Low Osmolar Contrast (ICD-10-PCS; 2017-10-03)
PROC: B2151ZZ Fluoroscopy of Left Heart using Low Osmolar Contrast (ICD-10-PCS; 2017-10-03)
PROC: 5A1D70Z Performance of Urinary Filtration, Intermittent, Less than 6 Hours Per Day (ICD-10-PCS; 2017-10-04)
DX: I25.10 Atherosclerotic heart disease of native coronary artery without angina pectoris (principal); I25.82 Chronic total occlusion of coronary artery; I27.20 Pulmonary hypertension, unspecified; I12.9 Hypertensive chronic kidney disease with stage 1 through stage 4 chronic kidney disease, or unspecified chronic kidney disease; I25.5 Ischemic cardiomyopathy; N18.9 Chronic kidney disease, unspecified; Z86.711 Personal history of pulmonary embolism; Z86.718 Personal history of other venous thrombosis and embolism; Z88.8 Allergy status to other drugs, medicaments and biological substances; Z88.1 Allergy status to other antibiotic agents; Z88.5 Allergy status to narcotic agent; Z95.5 Presence of coronary angioplasty implant and graft; Z99.2 Dependence on renal dialysis
CPT/HCPCS: 36415; 80053; 82962; 85025; 85610; 85730; 87081; 87493; 90935; 93458; 99152; 99153; C1751; C1887; J1815; J2250; Q9967

== ENCOUNTER 2017-10-21 00:19 | Inpatient (IN) | payer MEDICARE, MEDICAID ==
[~2017-10-21] VITALS: Ht 170.2 cm; Wt 62.7 kg
[2017-10-21] MEDS ORDERED: IPRATROPIUM BROM 0.5 MG/2.5ML INH SOL NEB ONE (01:00)
[2017-10-21] MEDS ORDERED: ALBUTEROL SULF 2.5 MG/0.5ML(0.5%) NEB SOLN NEB ONE (01:00)
[2017-10-21] MEDS ORDERED: methylPREDNISolone SOD SUCC 125 MG/2 ML VL IV ONE (01:00)
[2017-10-21 01:19] LABS: Basophils # (auto) 0 uL; Basophils % (auto) 0.8 % (0.0-2.0); Eosinophils # (auto) 0.1 uL; Eosinophils % (auto) 1.9 % (0.0-7.0); Hematocrit 44.6 % (36.0-46.0); Hemoglobin 14.2 g/dL (12.2-16.2); Lymphocytes # (auto) 0.5 uL; Mean Corpuscular Hemoglobin 30.7 pg (28.0-32.0); Mean Corpuscular Hgb Conc. 31.9 g/dL (32.0-36.0); Mean Corpuscular Volume 96.4 fL (80.0-100.0); Monocytes # (auto) 0.7 uL; Monocytes % (auto) 11.3 % (0.0-12.0); Neutrophils # (auto) 4.6 uL; Nucleated Red Blood Cells % 0.1 %; Platelet Count (auto) 130 10^3/uL (140-450); Red Blood Cells 4.62 10^6/uL (4.0-5.20); Red Cell Distribution Width 15.5 % (11.8-14.3)
[2017-10-21 01:36] LABS: BUN/Creatinine Ratio 6.5; Calcium 7.7 mg/dL (8.5-10.1); Potassium 5.5 mmol/L (3.5-5.1)
[2017-10-21 01:43] LABS: Bilirubin, Total 0.8 mg/dL (0.2-1.0); Total Protein 7.6 g/dL (6.4-8.2)
[2017-10-21] MEDS ORDERED: ACETAMINOPHEN 500 MG TAB PO PRN (04:45)
[2017-10-21] MEDS ORDERED: ONDANSETRON HCL 4 MG/2 ML VIAL IV PRN (04:45)
[2017-10-21] MEDS ORDERED: HYDROcodone-ACET 5/325MG TAB PO PRN (04:45)
[2017-10-21] MEDS ORDERED: TEMAZEPAM 15 MG CAP PO PRN (04:45)
[2017-10-21] MEDS ORDERED: SODIUM POLYSTYRENE SULF 15GM/60ML SUSP PO ONE (06:00)
[2017-10-21] MEDS: IPRATROPIUM BROM 0.5 MG/2.5ML INH SOL NEB SCH ×2 (06:40→12:50)
[2017-10-21] MEDS: ALBUTEROL SULF 2.5 MG/0.5ML(0.5%) NEB SOLN NEB SCH ×2 (06:40→12:50)
[2017-10-21 09:00] VITALS: BP 163/72
[2017-10-21] MEDS ORDERED: NITROGLYCERIN 0.4 MG SL TAB SL PRN ×2 (09:30)
[2017-10-21] MEDS ORDERED: MORPHINE SULF INJ 2 MG/ML SYRINGE 1ML IV PRN (09:30)
[2017-10-21] MEDS: SEVELAMER 800 MG TAB PO SCH ×2 (09:50→12:19)
[2017-10-21 09:58] VITALS: BP 161/68
[2017-10-21] MEDS ORDERED: ALBU1AER4 IN (10:20)
[2017-10-21] MEDS ORDERED: MIDO10TA PO (10:20)
[2017-10-21] MEDS ORDERED: SEVE800T8 PO (10:21)
[2017-10-21] MEDS ORDERED: INSDRIP IV (10:21)
[2017-10-21] MEDS ORDERED: [UNRECOGNIZED DRUG - CODE] TOP (10:23)
[2017-10-21] MEDS ORDERED: IBUP600T27 PO (10:23)
[2017-10-21] MEDS ORDERED: ROSU40TA PO (10:24)
[2017-10-21] MEDS ORDERED: LACT20PA4 PO (10:25)
[2017-10-21] MEDS ORDERED: ONDA4TAB5 PO (10:25)
[2017-10-21 12:00] VITALS: BP 165/86
[2017-10-21] MEDS ORDERED: SODIUM CHLOR 0.9% PF (SALINE LOCK) 10ML VIAL IV SCH (14:00)
[2017-10-21] MEDS ORDERED: HYDROcodone-ACET 10/325MG TAB PO PRN (15:45)
[2017-10-21 16:00] VITALS: BP 168/83
[2017-10-21] MEDS ORDERED: ALPRAZolam 0.25 MG TAB PO ONE (16:00)
[2017-10-21] MEDS ORDERED: LORazepam 0.5 MG TAB PO ONE (16:00)
[2017-10-21] MEDS ORDERED: APIXABAN 5 MG TAB PO SCH (22:00)
== END 2017-10-21 17:52 | disposition home or self-care (01) | DRG 640 ==
LOC: EDBD 00:19 → ER 00:24 → TELE 00:25 → TELE-EAST 09:00
PROVIDERS: ADMIT Nurse Practitioner Family; ATTEND Family Medicine
PROC: 5A1D70Z Performance of Urinary Filtration, Intermittent, Less than 6 Hours Per Day (ICD-10-PCS; principal; 2017-10-21)
DX: E87.70 Fluid overload, unspecified (principal); N18.6 End stage renal disease; I13.2 Hypertensive heart and chronic kidney disease with heart failure and with stage 5 chronic kidney disease, or end stage renal disease; E11.22 Type 2 diabetes mellitus with diabetic chronic kidney disease; E11.51 Type 2 diabetes mellitus with diabetic peripheral angiopathy without gangrene; E44.1 Mild protein-calorie malnutrition; J44.1 Chronic obstructive pulmonary disease with (acute) exacerbation; N25.81 Secondary hyperparathyroidism of renal origin; E87.5 Hyperkalemia; E87.1 Hypo-osmolality and hyponatremia; F17.200 Nicotine dependence, unspecified, uncomplicated; I25.10 Atherosclerotic heart disease of native coronary artery without angina pectoris; F41.9 Anxiety disorder, unspecified; I50.9 Heart failure, unspecified; Z79.4 Long term (current) use of insulin; Z82.49 Family history of ischemic heart disease and other diseases of the circulatory system; Z83.3 Family history of diabetes mellitus; Z85.038 Personal history of other malignant neoplasm of large intestine; Z99.2 Dependence on renal dialysis; Z89.511 Acquired absence of right leg below knee; Z88.1 Allergy status to other antibiotic agents; Z88.5 Allergy status to narcotic agent; Z88.8 Allergy status to other drugs, medicaments and biological substances; D64.9 Anemia, unspecified; Z68.21 Body mass index [BMI] 21.0-21.9, adult
CPT/HCPCS: 36415; 71045; 80053; 83036; 83880; 84484; 85025; 90935; 93005; 94640; 94761; 96374

== ENCOUNTER 2017-10-22 06:05 | Inpatient (IN) | payer MEDICARE, MEDICAID ==
[~2017-10-22] VITALS: Ht 167.6 cm; Wt 63.7 kg
[~2017-10-22 06:05] MED LIST changes: +ALBU1AER4 IN; -CALC500C3 PO; +IBUP600T27 PO; +INSDRIP IV; +LACT20PA4 PO; +MIDO10TA PO; +ONDA4TAB5 PO; +ROSU40TA PO; +SEVE800T8 PO; +[UNRECOGNIZED DRUG - CODE] TOP
[2017-10-22 07:15] LABS: Basophils # (auto) 0 uL; Basophils % (auto) 0.5 % (0.0-2.0); Eosinophils # (auto) 0 uL; Eosinophils % (auto) 0.5 % (0.0-7.0); Hematocrit 43.1 % (36.0-46.0); Hemoglobin 14.2 g/dL (12.2-16.2); Lymphocytes # (auto) 0.5 uL; Lymphocytes % (auto) 8.2 % (10.0-50.0); Mean Corpuscular Hemoglobin 31.2 pg (28.0-32.0); Mean Corpuscular Hgb Conc. 32.9 g/dL (32.0-36.0); Mean Corpuscular Volume 94.6 fL (80.0-100.0); Monocytes # (auto) 0.6 uL; Monocytes % (auto) 9.6 % (0.0-12.0); Neutrophils # (auto) 4.9 uL; Neutrophils % (auto) 81.2 % (37.0-80.0); Nucleated Red Blood Cells % 0.2 %; Platelet Count (auto) 133 10^3/uL (140-450); Red Blood Cells 4.56 10^6/uL (4.0-5.20); Red Cell Distribution Width 15.2 % (11.8-14.3)
[2017-10-22 07:21] LABS: INR 1.21 (0.9-1.15); Partial Thromboplastin Time 35.5 sec (22.64-33.71); Prothrombin Time 13.2 sec (9.37-12.3)
[2017-10-22 07:29] LABS: Albumin 3.3 g/dL (3.4-5.0); BUN/Creatinine Ratio 6.4; Calcium 8.4 mg/dL (8.5-10.1); Magnesium 2.6 mg/dL (1.6-2.6); Potassium 3.7 mmol/L (3.5-5.1)
[2017-10-22 07:34] LABS: Bilirubin, Total 0.6 mg/dL (0.2-1.0); Total Protein 7.6 g/dL (6.4-8.2)
[2017-10-22] MEDS ORDERED: FUROSEMIDE 40 MG/4 ML VIAL IV ONE (11:30)
[2017-10-22] MEDS ORDERED: ALBUTEROL SULF 2.5 MG/0.5ML(0.5%) NEB SOLN NEB PRN (12:45)
[2017-10-22] MEDS ORDERED: DEXTROSE (50%) 50ML SYRG IV PRN (12:45)
[2017-10-22] MEDS ORDERED: LACTULOSE 20Gm/30ML SOLN PO PRN (12:45)
[2017-10-22] MEDS ORDERED: PROMETHAZINE HCL 25 MG/ML 1ML IV PRN (12:45)
[2017-10-22] MEDS ORDERED: traMADol HCL 50 MG TAB PO PRN (12:45)
[2017-10-22] MEDS ORDERED: ACETAMINOPHEN 500 MG TAB PO PRN (12:45)
[2017-10-22] MEDS ORDERED: NITROGLYCERIN 0.4 MG SL TAB SL PRN (12:45)
[2017-10-22] MEDS: CARVEDILOL 3.125 MG TAB PO SCH ×2 (13:20→21:58)
[2017-10-22] MEDS: B-COMPLEX W/ C & FOLIC ACID(NEPHROVITE TAB) PO SCH (13:20)
[2017-10-22] MEDS ORDERED: ALBUTEROL SULF 2.5 MG/0.5ML(0.5%) NEB SOLN NEB ONE ×2 (13:30→13:45)
[2017-10-22] MEDS ORDERED: IPRATROPIUM BROM 0.5 MG/2.5ML INH SOL NEB ONE (13:30)
[2017-10-22] MEDS ORDERED: methylPREDNISolone SOD SUCC 125 MG/2 ML VL IV ONE (13:30)
[2017-10-22] MEDS ORDERED: LOPERAMIDE HCL 2 MG CAP PO PRN (13:30)
[2017-10-22] MEDS: HEPARIN SODIUM (PORCINE) 5000 UNITS/ML 1ML VIAL SC SCH ×2 (13:49→22:01)
[2017-10-22] MEDS: InsuLIN REG 1unit/0.01ml Soln (100units/ml) SC SCH ×2 (17:00→22:37)
[2017-10-22] MEDS: ACCU-CHEK COMFORT CURVE STRIP VI SCH ×2 (17:30→22:37)
[2017-10-22] MEDS: SODIUM CHLOR 0.9% PF (SALINE LOCK) 10ML VIAL IV SCH ×2 (17:30→21:57)
[2017-10-22] MEDS ORDERED: IPRATROPIUM BROM 0.5 MG/2.5ML INH SOL NEB SCH (18:00)
[2017-10-22] MEDS ORDERED: ALBUTEROL SULF 2.5 MG/0.5ML(0.5%) NEB SOLN NEB SCH (18:00)
[2017-10-22] MEDS: ALBUTEROL SULF 2.5 MG/0.5ML(0.5%) NEB SOLN NEB SCH (18:44)
[2017-10-22] MEDS: IPRATROPIUM BROM 0.5 MG/2.5ML INH SOL NEB SCH (18:44)
[2017-10-22] MEDS: methylPREDNISolone SOD SUCC 40 MG/ML VL IV SCH (18:46)
[2017-10-22] MEDS: SEVELAMER 800 MG TAB PO SCH (18:46)
[2017-10-22] MEDS: LOSARTAN POTASSIUM 50 MG TAB PO SCH (21:59)
[2017-10-22] MEDS: traZODone HCL 50 MG TAB PO SCH (22:00)
[2017-10-22] MEDS: ATORVASTATIN 20 MG TAB PO SCH (22:00)
[2017-10-22] MEDS: TEMAZEPAM 15 MG CAP PO PRN (22:47)
[2017-10-22 23:15] VITALS: BP 166/80
[2017-10-22 23:37] VITALS: BP 166/80
[2017-10-23] VITALS (7 sets, daily range): BP systolic 129–161; BP diastolic 61–80
[2017-10-23] MEDS: methylPREDNISolone SOD SUCC 40 MG/ML VL IV SCH ×5 (00:02→23:59)
[2017-10-23] MEDS: ALPRAZolam 0.25 MG TAB PO PRN ×2 (01:19→19:44)
[2017-10-23] MEDS: ALBUTEROL SULF 2.5 MG/0.5ML(0.5%) NEB SOLN NEB SCH ×4 (06:52→23:54)
[2017-10-23] MEDS: IPRATROPIUM BROM 0.5 MG/2.5ML INH SOL NEB SCH ×4 (06:52→23:54)
[2017-10-23 06:58] LABS: Basophils # (auto) 0 uL; Basophils % (auto) 0.1 % (0.0-2.0); Eosinophils # (auto) 0 uL; Hematocrit 42.7 % (36.0-46.0); Hemoglobin 14.1 g/dL (12.2-16.2); Lymphocytes # (auto) 0.3 uL; Mean Corpuscular Hemoglobin 31.2 pg (28.0-32.0); Mean Corpuscular Hgb Conc. 33.1 g/dL (32.0-36.0); Mean Corpuscular Volume 94.2 fL (80.0-100.0); Monocytes # (auto) 0.1 uL; Monocytes % (auto) 1.2 % (0.0-12.0); Neutrophils # (auto) 7.4 uL; Neutrophils % (auto) 94.7 % (37.0-80.0); Platelet Count (auto) 139 10^3/uL (140-450); Red Blood Cells 4.53 10^6/uL (4.0-5.20); Red Cell Distribution Width 15.5 % (11.8-14.3); White Blood Cell 7.8 10^3/uL (4.4-10.8)
[2017-10-23] MEDS: InsuLIN REG 1unit/0.01ml Soln (100units/ml) SC SCH ×4 (07:00→22:00)
[2017-10-23] MEDS: SODIUM CHLOR 0.9% PF (SALINE LOCK) 10ML VIAL IV SCH ×3 (07:00→13:48)
[2017-10-23] MEDS: ACCU-CHEK COMFORT CURVE STRIP VI SCH ×4 (07:01→22:00)
[2017-10-23 07:35] LABS: Albumin 2.7 g/dL (3.4-5.0); BUN/Creatinine Ratio 7.6; Bilirubin, Total 0.7 mg/dL (0.2-1.0); Calcium 8.5 mg/dL (8.5-10.1); Potassium 5.2 mmol/L (3.5-5.1)
[2017-10-23] MEDS: PANTOPRAZOLE 40 MG TAB PO SCH (09:17)
[2017-10-23] MEDS: AZITHROMYCIN 500MG/ 250ML 250 ML IV SCH (09:17)
[2017-10-23] MEDS: B-COMPLEX W/ C & FOLIC ACID(NEPHROVITE TAB) PO SCH (09:18)
[2017-10-23] MEDS: SEVELAMER 800 MG TAB PO SCH ×3 (09:18→17:20)
[2017-10-23] MEDS: CARVEDILOL 3.125 MG TAB PO SCH ×2 (09:19→22:00)
[2017-10-23] MEDS: INSULIN LANTUS (GLARGINE) 1 /0.01ml (100units/ml) SC SCH (09:21)
[2017-10-23] MEDS: HEPARIN SODIUM (PORCINE) 5000 UNITS/ML 1ML VIAL SC SCH ×2 (09:26→22:00)
[2017-10-23] MEDS: NITROGLYCERIN 0.2MG/HR TOPICAL PATCH TD SCH (09:27)
[2017-10-23] MEDS ORDERED: FUROSEMIDE 40 MG/4 ML VIAL IV SCH (10:00)
[2017-10-23] MEDS: ALBUTEROL SULF 2.5 MG/0.5ML(0.5%) NEB SOLN NEB PRN (10:21)
[2017-10-23] MEDS: LOSARTAN POTASSIUM 50 MG TAB PO SCH (22:00)
[2017-10-23] MEDS: TEMAZEPAM 15 MG CAP PO PRN (23:00)
[2017-10-23] MEDS: ATORVASTATIN 20 MG TAB PO SCH (23:01)
[2017-10-23] MEDS: traZODone HCL 50 MG TAB PO SCH (23:01)
[2017-10-24 05:00] VITALS: BP 139/67
[2017-10-24] MEDS: InsuLIN REG 1unit/0.01ml Soln (100units/ml) SC SCH ×4 (06:34→22:00)
[2017-10-24] MEDS: methylPREDNISolone SOD SUCC 40 MG/ML VL IV SCH ×3 (06:34→17:03)
[2017-10-24] MEDS: SODIUM CHLOR 0.9% PF (SALINE LOCK) 10ML VIAL IV SCH ×3 (06:34→22:13)
[2017-10-24] MEDS: ACCU-CHEK COMFORT CURVE STRIP VI SCH ×4 (06:34→22:15)
[2017-10-24] MEDS: ALBUTEROL SULF 2.5 MG/0.5ML(0.5%) NEB SOLN NEB SCH ×3 (06:51→19:00)
[2017-10-24] MEDS: IPRATROPIUM BROM 0.5 MG/2.5ML INH SOL NEB SCH ×3 (06:51→19:00)
[2017-10-24 08:36] VITALS: BP 165/74
[2017-10-24] MEDS: HEPARIN SODIUM (PORCINE) 5000 UNITS/ML 1ML VIAL SC SCH ×2 (09:45→22:00)
[2017-10-24] MEDS: INSULIN LANTUS (GLARGINE) 1 /0.01ml (100units/ml) SC SCH (09:47)
[2017-10-24] MEDS: SEVELAMER 800 MG TAB PO SCH ×3 (09:50→17:03)
[2017-10-24] MEDS: AZITHROMYCIN 500MG/ 250ML 250 ML IV SCH (09:50)
[2017-10-24] MEDS: CARVEDILOL 3.125 MG TAB PO SCH ×2 (09:51→22:13)
[2017-10-24] MEDS: B-COMPLEX W/ C & FOLIC ACID(NEPHROVITE TAB) PO SCH (09:52)
[2017-10-24] MEDS: PANTOPRAZOLE 40 MG TAB PO SCH (09:53)
[2017-10-24] MEDS: NITROGLYCERIN 0.2MG/HR TOPICAL PATCH TD SCH (09:53)
[2017-10-24] MEDS ORDERED: BUDESONIDE (INHALATION) 0.5 MG/2 ML NEB ONE (11:47)
[2017-10-24] MEDS ORDERED: ALBUTEROL SULF 2.5 MG/0.5ML(0.5%) NEB SOLN ONE (11:47)
[2017-10-24] MEDS: BUDESONIDE (INHALATION) 0.5 MG/2 ML NEB NEB SCH ×2 (11:52→19:01)
[2017-10-24 13:20] VITALS: BP 144/72
[2017-10-24] MEDS ORDERED: ACETYLCYSTEINE 10 %(100MG/ML) SOL 4ML ONE (14:09)
[2017-10-24] MEDS: ACETYLCYSTEINE 20%(200MG/ML) SOL 4ML NEB SCH ×2 (14:32→19:00)
[2017-10-24] MEDS: ALBUTEROL SULF 2.5 MG/0.5ML(0.5%) NEB SOLN NEB PRN (14:32)
[2017-10-24 16:44] VITALS: BP 160/82
[2017-10-24 20:00] VITALS: BP 174/84
[2017-10-24 22:00] VITALS: BP 175/84
[2017-10-24] MEDS: TEMAZEPAM 15 MG CAP PO PRN (22:14)
[2017-10-24] MEDS: ATORVASTATIN 20 MG TAB PO SCH (22:14)
[2017-10-24] MEDS: traZODone HCL 50 MG TAB PO SCH (22:14)
[2017-10-24] MEDS: LOSARTAN POTASSIUM 50 MG TAB PO SCH (22:14)
[2017-10-25] VITALS (7 sets, daily range): BP systolic 132–180; BP diastolic 59–80
[2017-10-25] MEDS: ACETYLCYSTEINE 20%(200MG/ML) SOL 4ML NEB SCH ×3 (00:15→14:47)
[2017-10-25] MEDS: BUDESONIDE (INHALATION) 0.5 MG/2 ML NEB NEB SCH ×2 (00:15→10:03)
[2017-10-25] MEDS: ALBUTEROL SULF 2.5 MG/0.5ML(0.5%) NEB SOLN NEB SCH ×4 (00:44→19:01)
[2017-10-25] MEDS: IPRATROPIUM BROM 0.5 MG/2.5ML INH SOL NEB SCH ×4 (00:44→19:01)
[2017-10-25] MEDS: methylPREDNISolone SOD SUCC 40 MG/ML VL IV SCH ×5 (01:05→23:54)
[2017-10-25] MEDS: ALPRAZolam 0.25 MG TAB PO PRN (01:13)
[2017-10-25 05:51] LABS: Basophils # (auto) 0 uL; Basophils % (auto) 0.2 % (0.0-2.0); Eosinophils # (auto) 0 uL; Eosinophils % (auto) 0.1 % (0.0-7.0); Hematocrit 40.5 % (36.0-46.0); Hemoglobin 13.2 g/dL (12.2-16.2); Lymphocytes # (auto) 0.3 uL; Lymphocytes % (auto) 4.5 % (10.0-50.0); Mean Corpuscular Hemoglobin 30.6 pg (28.0-32.0); Mean Corpuscular Hgb Conc. 32.6 g/dL (32.0-36.0); Monocytes # (auto) 0.2 uL; Monocytes % (auto) 2.9 % (0.0-12.0); Neutrophils # (auto) 6.6 uL; Neutrophils % (auto) 92.3 % (37.0-80.0); Nucleated Red Blood Cells % 0.2 %; Platelet Count (auto) 133 10^3/uL (140-450); Red Blood Cells 4.32 10^6/uL (4.0-5.20); Red Cell Distribution Width 15.3 % (11.8-14.3); White Blood Cell 7.1 10^3/uL (4.4-10.8)
[2017-10-25] MEDS: SODIUM CHLOR 0.9% PF (SALINE LOCK) 10ML VIAL IV SCH ×3 (05:58→22:00)
[2017-10-25 06:12] LABS: BUN/Creatinine Ratio 7.8; Calcium 8.7 mg/dL (8.5-10.1); Potassium 5.5 mmol/L (3.5-5.1)
[2017-10-25] MEDS: InsuLIN REG 1unit/0.01ml Soln (100units/ml) SC SCH ×4 (06:55→21:57)
[2017-10-25] MEDS: ACCU-CHEK COMFORT CURVE STRIP VI SCH ×4 (06:55→21:57)
[2017-10-25] MEDS: SEVELAMER 800 MG TAB PO SCH ×3 (10:23→18:47)
[2017-10-25] MEDS: AZITHROMYCIN 500MG/ 250ML 250 ML IV SCH (10:23)
[2017-10-25] MEDS: CARVEDILOL 3.125 MG TAB PO SCH ×2 (10:24→21:56)
[2017-10-25] MEDS: B-COMPLEX W/ C & FOLIC ACID(NEPHROVITE TAB) PO SCH (10:25)
[2017-10-25] MEDS: PANTOPRAZOLE 40 MG TAB PO SCH (10:25)
[2017-10-25] MEDS: HEPARIN SODIUM (PORCINE) 5000 UNITS/ML 1ML VIAL SC SCH ×2 (10:27→21:54)
[2017-10-25] MEDS: INSULIN LANTUS (GLARGINE) 1 /0.01ml (100units/ml) SC SCH ×2 (10:29→21:57)
[2017-10-25] MEDS: NITROGLYCERIN 0.2MG/HR TOPICAL PATCH TD SCH (10:51)
[2017-10-25] MEDS ORDERED: SODIUM POLYSTYRENE SULF 15GM/60ML SUSP PO ONE ×2 (12:15→14:45)
[2017-10-25] MEDS ORDERED: ACETYLCYSTEINE 10 %(100MG/ML) SOL 4ML ONE (14:45)
[2017-10-25] MEDS: ALBUTEROL SULF 2.5 MG/0.5ML(0.5%) NEB SOLN NEB PRN (14:47)
[2017-10-25] MEDS ORDERED: cloNIDine HCL 0.1 MG TAB PO PRN (17:00)
[2017-10-25] MEDS: NIFEdipine 10 MG CAP PO SCH (18:46)
[2017-10-25] MEDS: LOSARTAN POTASSIUM 50 MG TAB PO SCH (21:55)
[2017-10-25] MEDS: ATORVASTATIN 20 MG TAB PO SCH (21:55)
[2017-10-25] MEDS: traZODone HCL 50 MG TAB PO SCH (21:55)
[2017-10-26] MEDS: IPRATROPIUM BROM 0.5 MG/2.5ML INH SOL NEB SCH ×4 (00:15→18:37)
[2017-10-26] MEDS: ALBUTEROL SULF 2.5 MG/0.5ML(0.5%) NEB SOLN NEB SCH ×4 (00:15→18:37)
[2017-10-26] MEDS: ALPRAZolam 0.25 MG TAB PO PRN (01:28)
[2017-10-26 05:38] VITALS: BP 152/71
[2017-10-26] MEDS: methylPREDNISolone SOD SUCC 40 MG/ML VL IV SCH ×3 (05:46→18:22)
[2017-10-26] MEDS: SODIUM CHLOR 0.9% PF (SALINE LOCK) 10ML VIAL IV SCH ×3 (05:46→22:08)
[2017-10-26] MEDS: ACETYLCYSTEINE 20%(200MG/ML) SOL 4ML NEB SCH ×3 (06:00→18:00)
[2017-10-26] MEDS: BUDESONIDE (INHALATION) 0.5 MG/2 ML NEB NEB SCH ×2 (06:22→18:37)
[2017-10-26] MEDS: ACCU-CHEK COMFORT CURVE STRIP VI SCH ×4 (06:35→22:06)
[2017-10-26] MEDS: InsuLIN REG 1unit/0.01ml Soln (100units/ml) SC SCH ×4 (06:35→22:05)
[2017-10-26 07:27] LABS: Basophils # (auto) 0 uL; Basophils % (auto) 0.2 % (0.0-2.0); Eosinophils # (auto) 0 uL; Hematocrit 40.3 % (36.0-46.0); Hemoglobin 13.3 g/dL (12.2-16.2); Lymphocytes # (auto) 0.3 uL; Lymphocytes % (auto) 3.6 % (10.0-50.0); Mean Corpuscular Volume 93.9 fL (80.0-100.0); Monocytes # (auto) 0.2 uL; Monocytes % (auto) 2.8 % (0.0-12.0); Neutrophils # (auto) 7.8 uL; Neutrophils % (auto) 93.4 % (37.0-80.0); Nucleated Red Blood Cells % 0.1 %; Platelet Count (auto) 124 10^3/uL (140-450); Red Blood Cells 4.29 10^6/uL (4.0-5.20); Red Cell Distribution Width 14.7 % (11.8-14.3); White Blood Cell 8.4 10^3/uL (4.4-10.8)
[2017-10-26 07:45] LABS: BUN/Creatinine Ratio 7.4; Calcium 8.5 mg/dL (8.5-10.1); Potassium 3.5 mmol/L (3.5-5.1)
[2017-10-26] MEDS: SEVELAMER 800 MG TAB PO SCH ×3 (08:39→18:13)
[2017-10-26 09:00] VITALS: BP 148/71
[2017-10-26 09:15] VITALS: BP 152/71
[2017-10-26] MEDS ORDERED: DEXTROSE (50%) 50ML SYRG IV PRN (09:15)
[2017-10-26] MEDS: AZITHROMYCIN 500MG/ 250ML 250 ML IV SCH (09:32)
[2017-10-26] MEDS: B-COMPLEX W/ C & FOLIC ACID(NEPHROVITE TAB) PO SCH (09:32)
[2017-10-26] MEDS: CARVEDILOL 3.125 MG TAB PO SCH ×2 (09:32→21:51)
[2017-10-26] MEDS: NIFEdipine 10 MG CAP PO SCH (09:33)
[2017-10-26] MEDS: PANTOPRAZOLE 40 MG TAB PO SCH (09:33)
[2017-10-26] MEDS: HEPARIN SODIUM (PORCINE) 5000 UNITS/ML 1ML VIAL SC SCH ×2 (09:36→22:00)
[2017-10-26] MEDS: INSULIN LANTUS (GLARGINE) 1 /0.01ml (100units/ml) SC SCH ×2 (09:37→22:05)
[2017-10-26] MEDS: NITROGLYCERIN 0.2MG/HR TOPICAL PATCH TD SCH (09:43)
[2017-10-26 13:00] VITALS: BP 98/52
[2017-10-26 17:04] VITALS: BP 149/68
[2017-10-26] MEDS: LOSARTAN POTASSIUM 50 MG TAB PO SCH (21:49)
[2017-10-26] MEDS: TEMAZEPAM 15 MG CAP PO PRN (21:50)
[2017-10-26] MEDS: traZODone HCL 50 MG TAB PO SCH (21:50)
[2017-10-26] MEDS: ATORVASTATIN 20 MG TAB PO SCH (21:50)
[2017-10-26 22:00] VITALS: BP 160/77
[2017-10-27] MEDS: methylPREDNISolone SOD SUCC 40 MG/ML VL IV SCH ×5 (00:04→23:55)
[2017-10-27 05:00] VITALS: BP 166/88
[2017-10-27] MEDS: ACETYLCYSTEINE 20%(200MG/ML) SOL 4ML NEB SCH ×2 (06:00)
[2017-10-27] MEDS: SODIUM CHLOR 0.9% PF (SALINE LOCK) 10ML VIAL IV SCH ×3 (06:20→22:09)
[2017-10-27] MEDS: ALBUTEROL SULF 2.5 MG/0.5ML(0.5%) NEB SOLN NEB SCH ×4 (06:45→19:23)
[2017-10-27] MEDS: BUDESONIDE (INHALATION) 0.5 MG/2 ML NEB NEB SCH ×2 (06:45→19:32)
[2017-10-27] MEDS: IPRATROPIUM BROM 0.5 MG/2.5ML INH SOL NEB SCH ×4 (06:45→19:23)
[2017-10-27] MEDS: ACCU-CHEK COMFORT CURVE STRIP VI SCH ×4 (06:58→22:09)
[2017-10-27] MEDS: InsuLIN REG 1unit/0.01ml Soln (100units/ml) SC SCH ×4 (06:58→22:00)
[2017-10-27 07:20] LABS: Basophils # (auto) 0 uL; Basophils % (auto) 0.2 % (0.0-2.0); Eosinophils # (auto) 0 uL; Hematocrit 39.9 % (36.0-46.0); Hemoglobin 13.1 g/dL (12.2-16.2); Lymphocytes # (auto) 0.3 uL; Lymphocytes % (auto) 4.5 % (10.0-50.0); Mean Corpuscular Hemoglobin 30.6 pg (28.0-32.0); Monocytes # (auto) 0.2 uL; Monocytes % (auto) 3.1 % (0.0-12.0); Neutrophils # (auto) 6.9 uL; Neutrophils % (auto) 92.2 % (37.0-80.0); Platelet Count (auto) 114 10^3/uL (140-450); Red Blood Cells 4.29 10^6/uL (4.0-5.20); Red Cell Distribution Width 14.6 % (11.8-14.3); White Blood Cell 7.5 10^3/uL (4.4-10.8)
[2017-10-27 07:24] LABS: BUN/Creatinine Ratio 9.3; Potassium 3.8 mmol/L (3.5-5.1)
[2017-10-27 07:25] LABS: Calcium 8.5 mg/dL (8.5-10.1)
[2017-10-27] MEDS: SEVELAMER 800 MG TAB PO SCH ×3 (08:15→18:56)
[2017-10-27 09:00] VITALS: BP 132/89
[2017-10-27] MEDS: NITROGLYCERIN 0.2MG/HR TOPICAL PATCH TD SCH (10:00)
[2017-10-27] MEDS: INSULIN LANTUS (GLARGINE) 1 /0.01ml (100units/ml) SC SCH ×2 (10:14→22:00)
[2017-10-27] MEDS: AZITHROMYCIN 500MG/ 250ML 250 ML IV SCH (10:16)
[2017-10-27] MEDS: NIFEdipine 10 MG CAP PO SCH (10:17)
[2017-10-27] MEDS: B-COMPLEX W/ C & FOLIC ACID(NEPHROVITE TAB) PO SCH (10:17)
[2017-10-27] MEDS: CARVEDILOL 3.125 MG TAB PO SCH ×2 (10:17→22:01)
[2017-10-27] MEDS: PANTOPRAZOLE 40 MG TAB PO SCH (10:18)
[2017-10-27 12:44] VITALS: BP 93/75
[2017-10-27] MEDS: ACETYLCYSTEINE 10 %(100MG/ML) SOL 4ML NEB SCH ×2 (12:50→19:23)
[2017-10-27 17:41] VITALS: BP 149/78
[2017-10-27 22:00] VITALS: BP 157/74
[2017-10-27] MEDS: traZODone HCL 50 MG TAB PO SCH (22:02)
[2017-10-27] MEDS: LOSARTAN POTASSIUM 50 MG TAB PO SCH (22:02)
[2017-10-27] MEDS: ATORVASTATIN 20 MG TAB PO SCH (22:03)
[2017-10-27] MEDS: HEPARIN SODIUM (PORCINE) 5000 UNITS/ML 1ML VIAL SC SCH (22:07)
[2017-10-27] MEDS: TEMAZEPAM 15 MG CAP PO PRN (22:07)
[2017-10-28] MEDS: ACETYLCYSTEINE 10 %(100MG/ML) SOL 4ML NEB SCH ×3 (01:05→13:46)
[2017-10-28] MEDS: IPRATROPIUM BROM 0.5 MG/2.5ML INH SOL NEB SCH ×3 (01:05→13:46)
[2017-10-28] MEDS: ALBUTEROL SULF 2.5 MG/0.5ML(0.5%) NEB SOLN NEB SCH ×3 (01:05→13:45)
[2017-10-28 05:00] VITALS: BP 158/74
[2017-10-28] MEDS: BUDESONIDE (INHALATION) 0.5 MG/2 ML NEB NEB SCH (06:05)
[2017-10-28] MEDS: ACCU-CHEK COMFORT CURVE STRIP VI SCH ×2 (06:29→12:28)
[2017-10-28] MEDS: methylPREDNISolone SOD SUCC 40 MG/ML VL IV SCH ×2 (06:29→12:28)
[2017-10-28] MEDS: InsuLIN REG 1unit/0.01ml Soln (100units/ml) SC SCH ×2 (06:41→12:32)
[2017-10-28] MEDS: SODIUM CHLOR 0.9% PF (SALINE LOCK) 10ML VIAL IV SCH ×2 (06:41→15:31)
[2017-10-28 08:00] LABS: BUN/Creatinine Ratio 8.4; Calcium 8.1 mg/dL (8.5-10.1); Potassium 3.8 mmol/L (3.5-5.1)
[2017-10-28] MEDS: SEVELAMER 800 MG TAB PO SCH ×2 (08:09→12:27)
[2017-10-28 08:10] LABS: Basophils # (auto) 0 uL; Eosinophils # (auto) 0 uL; Hematocrit 41.2 % (36.0-46.0); Hemoglobin 13.5 g/dL (12.2-16.2); Lymphocytes # (auto) 0.3 uL; Lymphocytes % (auto) 4.9 % (10.0-50.0); Mean Corpuscular Hemoglobin 30.3 pg (28.0-32.0); Mean Corpuscular Hgb Conc. 32.7 g/dL (32.0-36.0); Mean Corpuscular Volume 92.7 fL (80.0-100.0); Monocytes # (auto) 0.2 uL; Monocytes % (auto) 2.3 % (0.0-12.0); Neutrophils # (auto) 6.2 uL; Neutrophils % (auto) 92.8 % (37.0-80.0); Platelet Count (auto) 117 10^3/uL (140-450); Red Blood Cells 4.45 10^6/uL (4.0-5.20); Red Cell Distribution Width 14.9 % (11.8-14.3); White Blood Cell 6.7 10^3/uL (4.4-10.8)
[2017-10-28 09:00] VITALS: BP 155/76
[2017-10-28] MEDS: NIFEdipine 10 MG CAP PO SCH (09:02)
[2017-10-28] MEDS: B-COMPLEX W/ C & FOLIC ACID(NEPHROVITE TAB) PO SCH (09:02)
[2017-10-28] MEDS: PANTOPRAZOLE 40 MG TAB PO SCH (09:03)
[2017-10-28] MEDS: CARVEDILOL 3.125 MG TAB PO SCH (09:03)
[2017-10-28] MEDS: INSULIN LANTUS (GLARGINE) 1 /0.01ml (100units/ml) SC SCH (09:06)
[2017-10-28] MEDS: NITROGLYCERIN 0.2MG/HR TOPICAL PATCH TD SCH (10:00)
[2017-10-28] MEDS: AZITHROMYCIN 500MG/ 250ML 250 ML IV SCH (10:20)
[2017-10-28 12:52] VITALS: BP 97/58
[2017-10-28 13:40] VITALS: BP 155/76
== END 2017-10-28 15:30 | disposition home or self-care (01) | DRG 291 ==
LOC: EDBD 06:05 → ER 06:12 → TELE 06:13 → TELE-CENTR 13:55
PROVIDERS: ADMIT Internal Medicine; ATTEND Internal Medicine
PROC: 5A1D70Z Performance of Urinary Filtration, Intermittent, Less than 6 Hours Per Day (ICD-10-PCS; principal; 2017-10-23)
PROC: 5A1D70Z Performance of Urinary Filtration, Intermittent, Less than 6 Hours Per Day (ICD-10-PCS; 2017-10-25)
PROC: 5A1D70Z Performance of Urinary Filtration, Intermittent, Less than 6 Hours Per Day (ICD-10-PCS; 2017-10-27)
DX: I13.2 Hypertensive heart and chronic kidney disease with heart failure and with stage 5 chronic kidney disease, or end stage renal disease (principal); I50.33 Acute on chronic diastolic (congestive) heart failure; J18.9 Pneumonia, unspecified organism; E11.22 Type 2 diabetes mellitus with diabetic chronic kidney disease; D69.6 Thrombocytopenia, unspecified; E44.0 Moderate protein-calorie malnutrition; E11.51 Type 2 diabetes mellitus with diabetic peripheral angiopathy without gangrene; E11.65 Type 2 diabetes mellitus with hyperglycemia; N18.6 End stage renal disease; J44.0 Chronic obstructive pulmonary disease with (acute) lower respiratory infection; J44.1 Chronic obstructive pulmonary disease with (acute) exacerbation; E78.5 Hyperlipidemia, unspecified; Z77.22 Contact with and (suspected) exposure to environmental tobacco smoke (acute) (chronic); G47.00 Insomnia, unspecified; F41.9 Anxiety disorder, unspecified; D63.1 Anemia in chronic kidney disease; K59.00 Constipation, unspecified; I25.10 Atherosclerotic heart disease of native coronary artery without angina pectoris; Z79.01 Long term (current) use of anticoagulants; Z82.49 Family history of ischemic heart disease and other diseases of the circulatory system; Z83.3 Family history of diabetes mellitus; Z85.038 Personal history of other malignant neoplasm of large intestine; Z89.511 Acquired absence of right leg below knee; Z99.2 Dependence on renal dialysis; Z90.49 Acquired absence of other specified parts of digestive tract; Z98.51 Tubal ligation status; Z98.61 Coronary angioplasty status; Z68.22 Body mass index [BMI] 22.0-22.9, adult; Z88.8 Allergy status to other drugs, medicaments and biological substances; Z88.1 Allergy status to other antibiotic agents; Z88.6 Allergy status to analgesic agent; Z88.5 Allergy status to narcotic agent; Z79.899 Other long term (current) drug therapy
CPT/HCPCS: 36415; 71045; 80048; 80053; 80061; 82550; 82962; 83036; 83735; 83880; 84443; 84484; 85025; 85610; 85730; 87081; 87493; 87804; 90935; 93005; 94640; 96374; J1815

== ENCOUNTER 2017-10-30 07:29 | Inpatient (IN) | payer MEDICARE, MEDICAID ==
[~2017-10-30] VITALS: Ht 170.2 cm; Wt 68.5 kg
[2017-10-30] MEDS ORDERED: ENALAPRILAT 1.25 MG/ML-1ML VIAL IV ONE (08:15)
[2017-10-30 08:16] LABS: Basophils # (auto) 0.1 uL; Basophils % (auto) 0.4 % (0.0-2.0); Eosinophils # (auto) 0 uL; Eosinophils % (auto) 0.3 % (0.0-7.0); Hematocrit 42.2 % (36.0-46.0); Lymphocytes # (auto) 0.2 uL; Lymphocytes % (auto) 1.8 % (10.0-50.0); Mean Corpuscular Hemoglobin 30.8 pg (28.0-32.0); Mean Corpuscular Hgb Conc. 33.3 g/dL (32.0-36.0); Mean Corpuscular Volume 92.6 fL (80.0-100.0); Monocytes # (auto) 0.2 uL; Monocytes % (auto) 1.2 % (0.0-12.0); Neutrophils % (auto) 96.3 % (37.0-80.0); Platelet Count (auto) 117 10^3/uL (140-450); Red Blood Cells 4.56 10^6/uL (4.0-5.20); Red Cell Distribution Width 14.5 % (11.8-14.3); White Blood Cell 12.4 10^3/uL (4.4-10.8)
[2017-10-30 08:41] LABS: BUN/Creatinine Ratio 10.4; Bilirubin, Total 0.7 mg/dL (0.2-1.0); Calcium 8.4 mg/dL (8.5-10.1); Potassium 4.9 mmol/L (3.5-5.1)
[2017-10-30] MEDS ORDERED: LORazepam 0.5 MG TAB PO ONE (10:45)
[2017-10-30] MEDS ORDERED: NITROGLYCERIN 0.4 MG SL TAB SL PRN (13:30)
[2017-10-30] MEDS ORDERED: LACTULOSE 20 GM PO SCH (13:30)
[2017-10-30] MEDS ORDERED: ACETAMINOPHEN 500 MG TAB PO PRN (13:30)
[2017-10-30] MEDS ORDERED: ALBUTEROL SULF 2.5 MG/0.5ML(0.5%) NEB SOLN NEB PRN (13:30)
[2017-10-30] MEDS ORDERED: HYDROmorphone HCL 2 MG/ML VL IV PRN (13:30)
[2017-10-30] MEDS ORDERED: traMADol HCL 50 MG TAB PO PRN (13:30)
[2017-10-30] MEDS ORDERED: LACTULOSE 20Gm/30ML SOLN PO PRN ×2 (13:30→14:15)
[2017-10-30] MEDS ORDERED: DEXTROSE (50%) 50ML SYRG IV PRN (13:30)
[2017-10-30] MEDS ORDERED: PROMETHAZINE HCL 25 MG/ML 1ML IV PRN (13:30)
[2017-10-30] MEDS ORDERED: MIDODRINE HCL 10 MG TAB PO SCH (14:00)
[2017-10-30] MEDS ORDERED: LOPERAMIDE HCL 2 MG CAP PO PRN (14:15)
[2017-10-30] MEDS: HEPARIN SODIUM (PORCINE) 5000 UNITS/ML 1ML VIAL SC SCH ×2 (14:48→22:00)
[2017-10-30] MEDS ORDERED: methylPREDNISolone SOD SUCC 40 MG/ML VL IV ONE (15:15)
[2017-10-30] MEDS: InsuLIN REG 1unit/0.01ml Soln (100units/ml) SC SCH ×2 (15:56→20:07)
[2017-10-30] MEDS: ACCU-CHEK COMFORT CURVE STRIP VI SCH ×2 (15:56→20:08)
[2017-10-30] MEDS ORDERED: PRE5T PO (16:14)
[2017-10-30] MEDS ORDERED: APIX5TAB PO (16:14)
[2017-10-30] MEDS ORDERED: INSDRIP SUBCUT (16:14)
[2017-10-30] MEDS ORDERED: TEMA30CA5 PO (16:14)
[2017-10-30] MEDS ORDERED: CARV3.1240 PO (16:14)
[2017-10-30] MEDS ORDERED: ASPI-231 PO (16:14)
[2017-10-30] MEDS ORDERED: AZIT250T7 PO (16:14)
[2017-10-30] MEDS: IPRATROPIUM BROM 0.5 MG/2.5ML INH SOL NEB SCH (18:00)
[2017-10-30] MEDS ORDERED: PATIENTS OWN MEDICATION (Sevelamer Carbonate (Renvela) 800 MG) PO SCH (18:00)
[2017-10-30] MEDS: ALBUTEROL SULF 2.5 MG/0.5ML(0.5%) NEB SOLN NEB SCH (18:00)
[2017-10-30] MEDS ORDERED: TEMAZEPAM PO SCH (18:00)
[2017-10-30] MEDS: CARVEDILOL 3.125 MG TAB PO SCH (19:59)
[2017-10-30 20:00] VITALS: BP 153/85
[2017-10-30] MEDS: SEVELAMER 800 MG TAB PO SCH (20:00)
[2017-10-30] MEDS ORDERED: methylPREDNISolone SOD SUCC 40 MG/ML VL IV SCH (22:00)
[2017-10-30] MEDS ORDERED: CARVEDILOL 3.125 MG PO SCH (22:00)
[2017-10-30] MEDS ORDERED: PATIENTS OWN MEDICATION (Cholecalciferol (Vitamin D3) 2,000 UNIT) OR SCH (22:00)
[2017-10-30] MEDS: TEMAZEPAM 15 MG CAP PO PRN (22:15)
[2017-10-30] MEDS: traZODone HCL 50 MG TAB PO SCH (22:15)
[2017-10-30] MEDS: ATORVASTATIN 20 MG TAB PO SCH (22:15)
[2017-10-30 23:14] VITALS: BP 153/85
[2017-10-30 23:27] VITALS: BP 153/85
[2017-10-31] VITALS (7 sets, daily range): BP systolic 115–146; BP diastolic 50–73
[2017-10-31] MEDS: IPRATROPIUM BROM 0.5 MG/2.5ML INH SOL NEB SCH ×5 (00:08→23:44)
[2017-10-31] MEDS: ALBUTEROL SULF 2.5 MG/0.5ML(0.5%) NEB SOLN NEB SCH ×5 (00:08→23:44)
[2017-10-31] MEDS: ACCU-CHEK COMFORT CURVE STRIP VI SCH ×6 (00:10→20:10)
[2017-10-31] MEDS: InsuLIN REG 1unit/0.01ml Soln (100units/ml) SC SCH ×7 (00:10→20:10)
[2017-10-31 06:07] LABS: Basophils # (auto) 0 uL; Basophils % (auto) 0.1 % (0.0-2.0); Eosinophils # (auto) 0.1 uL; Eosinophils % (auto) 1.1 % (0.0-7.0); Hematocrit 39.3 % (36.0-46.0); Hemoglobin 13.4 g/dL (12.2-16.2); Lymphocytes # (auto) 0.3 uL; Lymphocytes % (auto) 3.6 % (10.0-50.0); Mean Corpuscular Hemoglobin 31.3 pg (28.0-32.0); Mean Corpuscular Hgb Conc. 34.1 g/dL (32.0-36.0); Mean Corpuscular Volume 91.9 fL (80.0-100.0); Monocytes # (auto) 0.1 uL; Monocytes % (auto) 1.3 % (0.0-12.0); Neutrophils # (auto) 6.9 uL; Neutrophils % (auto) 93.9 % (37.0-80.0); Nucleated Red Blood Cells % 0.1 %; Platelet Count (auto) 123 10^3/uL (140-450); Red Blood Cells 4.28 10^6/uL (4.0-5.20); Red Cell Distribution Width 14.4 % (11.8-14.3); White Blood Cell 7.4 10^3/uL (4.4-10.8)
[2017-10-31 06:18] LABS: Albumin 2.6 g/dL (3.4-5.0); Calcium 8.4 mg/dL (8.5-10.1); Potassium 4.4 mmol/L (3.5-5.1)
[2017-10-31 06:20] LABS: BUN/Creatinine Ratio 12.4
[2017-10-31 06:31] LABS: Bilirubin, Total 0.7 mg/dL (0.2-1.0)
[2017-10-31] MEDS: CARVEDILOL 3.125 MG TAB PO SCH ×2 (08:00→17:14)
[2017-10-31] MEDS ORDERED: NITROGLYCERIN 0.2MG/HR TOPICAL PATCH TD SCH (10:00)
[2017-10-31] MEDS ORDERED: PATIENTS OWN MEDICATION (Rosuvastatin Calcium (Crestor) 1 TAB) PO SCH (10:00)
[2017-10-31] MEDS: HEPARIN SODIUM (PORCINE) 5000 UNITS/ML 1ML VIAL SC SCH ×3 (10:00→22:13)
[2017-10-31] MEDS ORDERED: PATIENTS OWN MEDICATION (B-Complex W/ C & Folic Acid (Rena-Vite) 1 TAB) PO SCH (10:00)
[2017-10-31] MEDS ORDERED: FUROSEMIDE 40 MG/4 ML VIAL IV SCH (10:00)
[2017-10-31] MEDS ORDERED: ENOXAPARIN SOD 30 MG/0.3 ML SYRINGE SC SCH (10:00)
[2017-10-31] MEDS: CHOLECALCIFEROL (VITD3) 1,000 UNIT TAB PO SCH (10:12)
[2017-10-31] MEDS: LOSARTAN POTASSIUM 50 MG TAB PO SCH (10:13)
[2017-10-31] MEDS: INSULIN LANTUS (GLARGINE) 1 /0.01ml (100units/ml) SC SCH (10:14)
[2017-10-31] MEDS: SEVELAMER 800 MG TAB PO SCH ×3 (10:14→17:15)
[2017-10-31] MEDS: B-COMPLEX W/ C & FOLIC ACID(NEPHROVITE TAB) PO SCH (10:15)
[2017-10-31] MEDS ORDERED: LOPERAMIDE HCL 2 MG CAP PO PRN (12:00)
[2017-10-31] MEDS: traZODone HCL 50 MG TAB PO SCH (22:12)
[2017-10-31] MEDS: ATORVASTATIN 20 MG TAB PO SCH (22:12)
[2017-10-31] MEDS: TEMAZEPAM 15 MG CAP PO PRN (22:13)
[2017-11-01] MEDS: InsuLIN REG 1unit/0.01ml Soln (100units/ml) SC SCH ×6 (04:23→20:33)
[2017-11-01] MEDS: ACCU-CHEK COMFORT CURVE STRIP VI SCH ×6 (04:24→20:34)
[2017-11-01 05:24] VITALS: BP 132/72
[2017-11-01] MEDS: IPRATROPIUM BROM 0.5 MG/2.5ML INH SOL NEB SCH ×3 (06:00→19:28)
[2017-11-01] MEDS: ALBUTEROL SULF 2.5 MG/0.5ML(0.5%) NEB SOLN NEB SCH ×3 (06:00→19:29)
[2017-11-01] MEDS: CARVEDILOL 3.125 MG TAB PO SCH ×2 (08:29→18:35)
[2017-11-01] MEDS: SEVELAMER 800 MG TAB PO SCH ×3 (08:31→18:34)
[2017-11-01 09:00] VITALS: BP 114/76
[2017-11-01] MEDS: HEPARIN SODIUM (PORCINE) 5000 UNITS/ML 1ML VIAL SC SCH ×2 (10:00→22:00)
[2017-11-01] MEDS: B-COMPLEX W/ C & FOLIC ACID(NEPHROVITE TAB) PO SCH (10:18)
[2017-11-01] MEDS: CHOLECALCIFEROL (VITD3) 1,000 UNIT TAB PO SCH (10:19)
[2017-11-01] MEDS: LOSARTAN POTASSIUM 50 MG TAB PO SCH (10:20)
[2017-11-01] MEDS: INSULIN LANTUS (GLARGINE) 1 /0.01ml (100units/ml) SC SCH (10:41)
[2017-11-01 10:50] LABS: BUN/Creatinine Ratio 10.5; Potassium 3.8 mmol/L (3.5-5.1)
[2017-11-01 13:00] VITALS: BP 136/66
[2017-11-01 16:33] VITALS: BP 144/55
[2017-11-01] MEDS ORDERED: OXYCODONE W/ ACETAMINOPHEN 5/325MG TABLET PO PRN (18:00)
[2017-11-01 20:00] VITALS: BP 115/54
[2017-11-01 22:00] VITALS: BP 115/54
[2017-11-01] MEDS: traZODone HCL 50 MG TAB PO SCH (22:22)
[2017-11-01] MEDS: ATORVASTATIN 20 MG TAB PO SCH (22:23)
[2017-11-01] MEDS: TEMAZEPAM 15 MG CAP PO PRN (22:23)
[2017-11-02] MEDS: ACCU-CHEK COMFORT CURVE STRIP VI SCH ×3 (00:32→08:58)
[2017-11-02] MEDS: InsuLIN REG 1unit/0.01ml Soln (100units/ml) SC SCH ×3 (04:00→09:38)
[2017-11-02 05:00] VITALS: BP 94/52
[2017-11-02] MEDS: ALBUTEROL SULF 2.5 MG/0.5ML(0.5%) NEB SOLN NEB SCH ×4 (05:42→11:49)
[2017-11-02] MEDS: IPRATROPIUM BROM 0.5 MG/2.5ML INH SOL NEB SCH ×4 (05:42→11:49)
[2017-11-02 08:27] VITALS: BP 98/52
[2017-11-02] MEDS: SEVELAMER 800 MG TAB PO SCH (08:57)
[2017-11-02] MEDS: CARVEDILOL 3.125 MG TAB PO SCH (08:58)
[2017-11-02] MEDS: HEPARIN SODIUM (PORCINE) 5000 UNITS/ML 1ML VIAL SC SCH (10:00)
[2017-11-02] MEDS: B-COMPLEX W/ C & FOLIC ACID(NEPHROVITE TAB) PO SCH (10:04)
[2017-11-02] MEDS: CHOLECALCIFEROL (VITD3) 1,000 UNIT TAB PO SCH (10:10)
[2017-11-02] MEDS: LOSARTAN POTASSIUM 50 MG TAB PO SCH (10:22)
[2017-11-02] MEDS: INSULIN LANTUS (GLARGINE) 1 /0.01ml (100units/ml) SC SCH (10:41)
== END 2017-11-02 12:05 | disposition home or self-care (01) | DRG 291 ==
LOC: ER 07:29 → EDBD 07:29 → TELE 07:30 → TELE-CENTR 15:28
PROVIDERS: ADMIT Internal Medicine; ATTEND Internal Medicine
PROC: 5A1D70Z Performance of Urinary Filtration, Intermittent, Less than 6 Hours Per Day (ICD-10-PCS; principal; 2017-10-31)
DX: I13.2 Hypertensive heart and chronic kidney disease with heart failure and with stage 5 chronic kidney disease, or end stage renal disease (principal); N18.6 End stage renal disease; J96.10 Chronic respiratory failure, unspecified whether with hypoxia or hypercapnia; D69.6 Thrombocytopenia, unspecified; E11.22 Type 2 diabetes mellitus with diabetic chronic kidney disease; E44.0 Moderate protein-calorie malnutrition; J44.1 Chronic obstructive pulmonary disease with (acute) exacerbation; E87.1 Hypo-osmolality and hyponatremia; I50.43 Acute on chronic combined systolic (congestive) and diastolic (congestive) heart failure; J98.11 Atelectasis; D63.8 Anemia in other chronic diseases classified elsewhere; E78.5 Hyperlipidemia, unspecified; Z77.22 Contact with and (suspected) exposure to environmental tobacco smoke (acute) (chronic); F41.9 Anxiety disorder, unspecified; I25.10 Atherosclerotic heart disease of native coronary artery without angina pectoris; Z82.49 Family history of ischemic heart disease and other diseases of the circulatory system; Z83.3 Family history of diabetes mellitus; Z85.038 Personal history of other malignant neoplasm of large intestine; Z89.511 Acquired absence of right leg below knee; Z99.2 Dependence on renal dialysis; Z91.15 Patient's noncompliance with renal dialysis; Z88.8 Allergy status to other drugs, medicaments and biological substances; Z88.1 Allergy status to other antibiotic agents; Z88.5 Allergy status to narcotic agent; Z98.51 Tubal ligation status; Z90.49 Acquired absence of other specified parts of digestive tract; Z79.82 Long term (current) use of aspirin; Z79.899 Other long term (current) drug therapy; Z79.4 Long term (current) use of insulin; Z95.5 Presence of coronary angioplasty implant and graft; Z68.23 Body mass index [BMI] 23.0-23.9, adult
CPT/HCPCS: 36415; 36600; 71045; 80048; 80053; 82550; 82805; 82962; 83036; 83880; 84484; 85025; 87081; 90935; 93005; 94640; 96374; 96375; 97116; 97163; 97530; J1815

== ENCOUNTER 2017-11-23 17:42 | Inpatient (IN) | payer MEDICARE, MEDICAID ==
[~2017-11-23] VITALS: Ht 170.2 cm; Wt 64.2 kg
[~2017-11-23 17:42] MED LIST changes: +APIX5TAB PO; +ASPI-231 PO; +CARV3.1240 PO; -CARV6.2551 PO; -IBUP600T27 PO; -INSDRIP IV; +INSDRIP SUBCUT; -LOPE2TAB PO; -LOSA50TA6 PO; -ONDA4TAB5 PO; +PRE5T PO; +TEMA30CA5 PO; -TRAZ50TA2 PO; -[UNRECOGNIZED DRUG - CODE] TOP
[2017-11-23] MEDS ORDERED: ACETAMINOPHEN 500 MG TAB PO ONE ×2 (17:53→18:00)
[2017-11-23 19:03] LABS: Basophils # (auto) 0 uL; Basophils % (auto) 0.4 % (0.0-2.0); Eosinophils # (auto) 0 uL; Hematocrit 35.9 % (36.0-46.0); Hemoglobin 11.5 g/dL (12.2-16.2); Lymphocytes # (auto) 0.5 uL; Lymphocytes % (auto) 5.2 % (10.0-50.0); Mean Corpuscular Hemoglobin 30.8 pg (28.0-32.0); Mean Corpuscular Hgb Conc. 32.2 g/dL (32.0-36.0); Mean Corpuscular Volume 95.8 fL (80.0-100.0); Neutrophils # (auto) 8.2 uL; Neutrophils % (auto) 84.4 % (37.0-80.0); Nucleated Red Blood Cells % 0.1 %; Platelet Count (auto) 287 10^3/uL (140-450); Red Blood Cells 3.75 10^6/uL (4.0-5.20); Red Cell Distribution Width 16.3 % (11.8-14.3); White Blood Cell 9.7 10^3/uL (4.4-10.8)
[2017-11-23 19:24] LABS: Albumin 2.9 g/dL (3.4-5.0); BUN/Creatinine Ratio 4.5; Bilirubin, Total 0.5 mg/dL (0.2-1.0); Calcium 8.1 mg/dL (8.5-10.1); Lactic Acid w/Reflex 2.3 mmol/L (0.4-2.0); Total Protein 7.3 g/dL (6.4-8.2)
[2017-11-23 19:41] LABS: Potassium 5.6 mmol/L (3.5-5.1)
[2017-11-23 20:21] LABS: INR 1.23 (0.9-1.15); Partial Thromboplastin Time 29.2 sec (22.64-33.71); Prothrombin Time 13.4 sec (9.37-12.3)
[2017-11-23 20:26] LABS: Magnesium 2.6 mg/dL (1.6-2.6)
[2017-11-23] MEDS ORDERED: cefTRIAXone 1GM/10ml IVPUSH 10 ML IV ONE (22:45)
[2017-11-23] MEDS ORDERED: SODIUM POLYSTYRENE SULF 15GM/60ML SUSP PO ONE (22:45)
[2017-11-23] MEDS ORDERED: ASPirin-EC 81 mg tab PO ONE ×2 (22:45→23:12)
[2017-11-23] MEDS ORDERED: ONDANSETRON HCL 4 MG/2 ML VIAL IV PRN (23:30)
[2017-11-23] MEDS ORDERED: DEXTROSE (50%) 50ML SYRG IV PRN (23:45)
[2017-11-24 05:36] LABS: Basophils # (auto) 0.1 uL; Basophils % (auto) 1.5 % (0.0-2.0); Eosinophils # (auto) 0.1 uL; Eosinophils % (auto) 1.6 % (0.0-7.0); Hematocrit 33.5 % (36.0-46.0); Hemoglobin 10.9 g/dL (12.2-16.2); Lymphocytes # (auto) 0.5 uL; Lymphocytes % (auto) 10.4 % (10.0-50.0); Mean Corpuscular Hemoglobin 30.9 pg (28.0-32.0); Mean Corpuscular Hgb Conc. 32.6 g/dL (32.0-36.0); Mean Corpuscular Volume 94.5 fL (80.0-100.0); Monocytes # (auto) 0.8 uL; Monocytes % (auto) 15.8 % (0.0-12.0); Neutrophils # (auto) 3.5 uL; Neutrophils % (auto) 70.7 % (37.0-80.0); Nucleated Red Blood Cells % 0.2 %; Platelet Count (auto) 220 10^3/uL (140-450); Red Blood Cells 3.54 10^6/uL (4.0-5.20); Red Cell Distribution Width 15.6 % (11.8-14.3)
[2017-11-24] MEDS: ACETAMINOPHEN 500 MG TAB PO PRN ×3 (05:36→22:31)
[2017-11-24 05:54] LABS: BUN/Creatinine Ratio 5.5; Calcium 8.6 mg/dL (8.5-10.1); Potassium 4.5 mmol/L (3.5-5.1)
[2017-11-24] MEDS: InsuLIN REG 1unit/0.01ml Soln (100units/ml) SC SCH ×4 (07:00→22:00)
[2017-11-24] MEDS: ACCU-CHEK COMFORT CURVE STRIP VI SCH ×4 (07:09→22:06)
[2017-11-24] MEDS: SEVELAMER 800 MG TAB PO SCH ×3 (09:00→17:50)
[2017-11-24] MEDS: CARVEDILOL 3.125 MG TAB PO SCH ×2 (09:10→22:17)
[2017-11-24] MEDS: ASPirin-EC 81 mg tab PO SCH (09:10)
[2017-11-24 09:17] LABS: Hepatitis B Surface Antibody Negative
[2017-11-24 09:26] LABS: Hepatitis B Surface Antigen Negative (Negative)
[2017-11-24 14:50] VITALS: BP 127/58
[2017-11-24 20:00] VITALS: BP 147/75
[2017-11-24 22:00] VITALS: BP 147/75
[2017-11-24] MEDS: ATORVASTATIN 20 MG TAB PO SCH (22:17)
[2017-11-24] MEDS: TEMAZEPAM 15 MG CAP PO PRN (22:17)
[2017-11-24] MEDS: cefTRIAXone 1GM/10ml IVPUSH 10 ML IV SCH (22:18)
[2017-11-25 05:30] VITALS: BP 128/55
[2017-11-25 05:53] LABS: Basophils # (auto) 0 uL; Basophils % (auto) 0.4 % (0.0-2.0); Eosinophils # (auto) 0.1 uL; Eosinophils % (auto) 2.7 % (0.0-7.0); Hematocrit 31.8 % (36.0-46.0); Hemoglobin 10.5 g/dL (12.2-16.2); Lymphocytes # (auto) 0.5 uL; Lymphocytes % (auto) 8.5 % (10.0-50.0); Mean Corpuscular Hgb Conc. 32.9 g/dL (32.0-36.0); Mean Corpuscular Volume 94.4 fL (80.0-100.0); Monocytes # (auto) 0.8 uL; Monocytes % (auto) 13.8 % (0.0-12.0); Neutrophils # (auto) 4.1 uL; Neutrophils % (auto) 74.6 % (37.0-80.0); Nucleated Red Blood Cells % 0.1 %; Platelet Count (auto) 227 10^3/uL (140-450); Red Blood Cells 3.37 10^6/uL (4.0-5.20); Red Cell Distribution Width 15.8 % (11.8-14.3); White Blood Cell 5.4 10^3/uL (4.4-10.8)
[2017-11-25 06:06] LABS: Albumin 2.3 g/dL (3.4-5.0); Calcium 7.7 mg/dL (8.5-10.1); Potassium 4.4 mmol/L (3.5-5.1)
[2017-11-25 06:08] LABS: BUN/Creatinine Ratio 6.1
[2017-11-25 06:25] LABS: Bilirubin, Total 0.8 mg/dL (0.2-1.0)
[2017-11-25] MEDS: ACCU-CHEK COMFORT CURVE STRIP VI SCH ×4 (06:33→22:17)
[2017-11-25] MEDS: InsuLIN REG 1unit/0.01ml Soln (100units/ml) SC SCH ×4 (06:41→22:00)
[2017-11-25 08:00] VITALS: BP 131/61
[2017-11-25] MEDS: SEVELAMER 800 MG TAB PO SCH ×3 (08:19→18:00)
[2017-11-25] MEDS: CARVEDILOL 3.125 MG TAB PO SCH ×2 (09:36→22:06)
[2017-11-25] MEDS: ASPirin-EC 81 mg tab PO SCH (09:36)
[2017-11-25 12:00] VITALS: BP 139/63
[2017-11-25 13:05] LABS: Lactic Acid w/Reflex 2.3 mmol/L (0.4-2.0)
[2017-11-25 17:00] VITALS: BP 136/66
[2017-11-25] MEDS ORDERED: HEPARIN SODIUM (PORCINE) 5000 UNITS/ML 1ML VIAL IV ONE (17:00)
[2017-11-25] MEDS ORDERED: LORazepam 2MG/ML-1ML VIAL IV PRN (19:30)
[2017-11-25] MEDS ORDERED: HALOPERIDOL LACTATE 5 MG/ML INJ VIAL IM PRN (21:30)
[2017-11-25 22:00] VITALS: BP 130/55
[2017-11-25] MEDS: cefTRIAXone 1GM/10ml IVPUSH 10 ML IV SCH (22:05)
[2017-11-25] MEDS: ATORVASTATIN 20 MG TAB PO SCH (22:05)
[2017-11-25] MEDS: TEMAZEPAM 15 MG CAP PO PRN (22:08)
[2017-11-26 05:00] VITALS: BP 137/66
[2017-11-26] MEDS: InsuLIN REG 1unit/0.01ml Soln (100units/ml) SC SCH ×2 (06:20→12:31)
[2017-11-26] MEDS: ACCU-CHEK COMFORT CURVE STRIP VI SCH ×2 (06:20→12:31)
[2017-11-26] MEDS: SEVELAMER 800 MG TAB PO SCH ×2 (07:56→12:31)
[2017-11-26 08:00] VITALS: BP 124/60
[2017-11-26 09:00] VITALS: BP 124/60
[2017-11-26] MEDS: ASPirin-EC 81 mg tab PO SCH (09:48)
[2017-11-26] MEDS: CARVEDILOL 3.125 MG TAB PO SCH (09:49)
[2017-11-26 13:00] VITALS: BP 135/56
[2017-11-26 17:17] VITALS: BP 135/56
[2017-11-26 17:34] VITALS: BP 152/70
== END 2017-11-26 19:15 | disposition home or self-care (01) | DRG 640 ==
LOC: EDBD 17:42 → ER 17:47 → TELE 17:48 → TELE-CENTR 11-24 14:50
PROVIDERS: ADMIT Nurse Practitioner Family; ATTEND Internal Medicine
PROC: 5A1D70Z Performance of Urinary Filtration, Intermittent, Less than 6 Hours Per Day (ICD-10-PCS; principal; 2017-11-25)
DX: E87.5 Hyperkalemia (principal); N18.6 End stage renal disease; I13.2 Hypertensive heart and chronic kidney disease with heart failure and with stage 5 chronic kidney disease, or end stage renal disease; E44.0 Moderate protein-calorie malnutrition; E11.22 Type 2 diabetes mellitus with diabetic chronic kidney disease; J96.11 Chronic respiratory failure with hypoxia; J98.11 Atelectasis; I50.32 Chronic diastolic (congestive) heart failure; R10.9 Unspecified abdominal pain; E87.1 Hypo-osmolality and hyponatremia; E11.42 Type 2 diabetes mellitus with diabetic polyneuropathy; D63.8 Anemia in other chronic diseases classified elsewhere; E11.51 Type 2 diabetes mellitus with diabetic peripheral angiopathy without gangrene; F17.200 Nicotine dependence, unspecified, uncomplicated; I25.10 Atherosclerotic heart disease of native coronary artery without angina pectoris; I25.5 Ischemic cardiomyopathy; I67.2 Cerebral atherosclerosis; J44.9 Chronic obstructive pulmonary disease, unspecified; F41.9 Anxiety disorder, unspecified; K21.9 Gastro-esophageal reflux disease without esophagitis; Z79.01 Long term (current) use of anticoagulants; Z79.4 Long term (current) use of insulin; Z79.82 Long term (current) use of aspirin; Z79.899 Other long term (current) drug therapy; Z80.0 Family history of malignant neoplasm of digestive organs; Z82.49 Family history of ischemic heart disease and other diseases of the circulatory system; Z83.3 Family history of diabetes mellitus; Z85.038 Personal history of other malignant neoplasm of large intestine; Z86.711 Personal history of pulmonary embolism; Z89.511 Acquired absence of right leg below knee; Z90.49 Acquired absence of other specified parts of digestive tract; Z99.2 Dependence on renal dialysis; Z99.81 Dependence on supplemental oxygen; Z88.8 Allergy status to other drugs, medicaments and biological substances; Z88.1 Allergy status to other antibiotic agents; Z88.5 Allergy status to narcotic agent; Z68.20 Body mass index [BMI] 20.0-20.9, adult
CPT/HCPCS: 36415; 70450; 71045; 74176; 76856; 80048; 80053; 82150; 82962; 83605; 83690; 83735; 84484; 85025; 85610; 85730; 86703; 86706; 86803; 87040; 87081; 87340; 93005; 94761; 96374; J1815

== ENCOUNTER 2017-12-02 12:51 | Inpatient (IN) | payer MEDICARE, MEDICAID ==
[2017-12-02] VITALS (27 sets, daily range): BP systolic 101–181; BP diastolic 39–89
[~2017-12-02] VITALS: Ht 167.6 cm; Wt 66.2 kg
[2017-12-02] MEDS ORDERED: HEPARIN SODIUM (PORCINE) 5000 UNITS/ML 1ML VIAL ONE (12:58)
[2017-12-02] MEDS ORDERED: HEPARIN 1,000 UNITS/ml 1ML VIAL IV ONE (13:15)
[2017-12-02] MEDS ORDERED: fentaNYL CITRATE 100 MCG/2 ML VL ONE (13:19)
[2017-12-02] MEDS ORDERED: MIDAZOLAM HCL 1MG/1ML-2 ML VIAL ONE (13:19)
[2017-12-02] MEDS ORDERED: SODIUM CHL 0.9% 50 ML ONE (13:20)
[2017-12-02] MEDS ORDERED: LIDOCAINE HCL 2 %PF INJ 10ML AMP IJ ONE (13:20)
[2017-12-02] MEDS ORDERED: IOHEXOL 350 MG/ML 100ML IJ ONE (13:20)
[2017-12-02] MEDS ORDERED: EPINEPHrine HCL 1 MG/10 ML SYRG ONE (13:20)
[2017-12-02] MEDS ORDERED: ANGIOMAX 250 MG VIAL IV ONE (13:20)
[2017-12-02] MEDS ORDERED: ETOMIDATE (2MG/ML) 20ML VIAL IV ONE (13:24)
[2017-12-02] MEDS ORDERED: SUCCINYLCHOLINE CHLORIDE 20 MG/ML 10ML VIAL IV ONE (13:24)
[2017-12-02] MEDS ORDERED: PHENYLEPHRINE HCL 10 MG/ML VL ONE (13:49)
[2017-12-02 13:52] LABS: Basophils # (auto) 0.1 uL; Basophils % (auto) 0.8 % (0.0-2.0); Eosinophils # (auto) 0.1 uL; Eosinophils % (auto) 1.2 % (0.0-7.0); Hematocrit 33.6 % (36.0-46.0); Hemoglobin 10.8 g/dL (12.2-16.2); Lymphocytes # (auto) 1.1 uL; Lymphocytes % (auto) 17.8 % (10.0-50.0); Mean Corpuscular Hemoglobin 30.2 pg (28.0-32.0); Mean Corpuscular Hgb Conc. 32.2 g/dL (32.0-36.0); Mean Corpuscular Volume 93.7 fL (80.0-100.0); Monocytes % (auto) 15.7 % (0.0-12.0); Neutrophils % (auto) 64.5 % (37.0-80.0); Nucleated Red Blood Cells % 0.2 %; Platelet Count (auto) 152 10^3/uL (140-450); Red Blood Cells 3.58 10^6/uL (4.0-5.20); Red Cell Distribution Width 16.5 % (11.8-14.3); White Blood Cell 6.2 10^3/uL (4.4-10.8)
[2017-12-02 13:53] LABS: Albumin 2.5 g/dL (3.4-5.0); BUN/Creatinine Ratio 3.6; Bilirubin, Total 0.6 mg/dL (0.2-1.0); Calcium 8.2 mg/dL (8.5-10.1); Magnesium 2.4 mg/dL (1.6-2.6); Potassium 3.8 mmol/L (3.5-5.1); Total Protein 6.8 g/dL (6.4-8.2)
[2017-12-02 14:09] LABS: INR 1.24 (0.9-1.15); Prothrombin Time 13.5 sec (9.37-12.3)
[2017-12-02] MEDS ORDERED: MIDAZOLAM DRIP 50 mg/50mL 50 ML IV ONE (14:18)
[2017-12-02] MEDS: MIDAZOLAM DRIP 50 mg/50mL 50 ML IV SCH (14:30)
[2017-12-02] MEDS ORDERED: DIGOXIN (250MCG/ML) 2 ML AMPULE IV ONE (14:45)
[2017-12-02] MEDS ORDERED: NITROGLYCERIN 0.4 MG SL TAB SL PRN (15:00)
[2017-12-02] MEDS: NOREPINEPHRINE 16 MG/500ML KIT 500 ML IV SCH (15:00)
[2017-12-02] MEDS ORDERED: DEXTROSE (50%) 50ML SYRG IV PRN (15:00)
[2017-12-02] MEDS ORDERED: VANCOMYCIN PER PHARMACY 0 MG IV SCH (15:00)
[2017-12-02] MEDS ORDERED: methylPREDNISolone SOD SUCC 40 MG/ML VL IV ONE (15:00)
[2017-12-02] MEDS ORDERED: MORPHINE SULFATE 8mg/ml INJ SDV IV PRN ×2 (15:00)
[2017-12-02] MEDS: PHENYLEPHRINE IV 250 ML IV SCH ×2 (15:15→23:32)
[2017-12-02] MEDS: PIPERACILLIN-TAZOB 2.25GM 50 ML IV SCH ×2 (17:30→22:30)
[2017-12-02] MEDS: InsuLIN REG 1unit/0.01ml Soln (100units/ml) SC SCH (17:50)
[2017-12-02] MEDS: ACCU-CHEK COMFORT CURVE STRIP VI SCH (17:50)
[2017-12-02] MEDS ORDERED: VANCOMYCIN 1GM/250ML 250 ML IV SCH (18:00)
[2017-12-02] MEDS: methylPREDNISolone SOD SUCC 40 MG/ML VL IV SCH (22:00)
[2017-12-03] VITALS (106 sets, daily range): BP systolic 77–177; BP diastolic 40–87
[2017-12-03] MEDS: PROPOFOL 100 ML IV SCH
[2017-12-03] MEDS: InsuLIN REG 1unit/0.01ml Soln (100units/ml) SC SCH ×4 (01:00→18:00)
[2017-12-03] MEDS: ACCU-CHEK COMFORT CURVE STRIP VI SCH ×4 (01:00→18:05)
[2017-12-03] MEDS ORDERED: METOPROLOL TARTRATE 1MG/1ML-5ML VIAL IV ONE (02:00)
[2017-12-03] MEDS: PIPERACILLIN-TAZOB 2.25GM 50 ML IV SCH ×4 (04:11→22:33)
[2017-12-03 04:34] LABS: Basophils # (auto) 0 uL; Basophils % (auto) 0.3 % (0.0-2.0); Eosinophils # (auto) 0 uL; Eosinophils % (auto) 0.1 % (0.0-7.0); Hematocrit 36.3 % (36.0-46.0); Hemoglobin 11.6 g/dL (12.2-16.2); Lymphocytes # (auto) 0.3 uL; Lymphocytes % (auto) 6.7 % (10.0-50.0); Mean Corpuscular Hemoglobin 30.7 pg (28.0-32.0); Mean Corpuscular Hgb Conc. 32.1 g/dL (32.0-36.0); Mean Corpuscular Volume 95.8 fL (80.0-100.0); Monocytes # (auto) 0.1 uL; Neutrophils # (auto) 3.7 uL; Neutrophils % (auto) 89.9 % (37.0-80.0); Nucleated Red Blood Cells % 0.1 %; Platelet Count (auto) 135 10^3/uL (140-450); Red Blood Cells 3.79 10^6/uL (4.0-5.20); Red Cell Distribution Width 16.7 % (11.8-14.3); White Blood Cell 4.1 10^3/uL (4.4-10.8)
[2017-12-03 04:51] LABS: BUN/Creatinine Ratio 4.8; Calcium 8.4 mg/dL (8.5-10.1); Potassium 4.4 mmol/L (3.5-5.1)
[2017-12-03] MEDS: PHENYLEPHRINE IV 250 ML IV SCH ×2 (07:49→16:06)
[2017-12-03] MEDS: PANTOPRAZOLE 40 MG/10 ML VIAL IV SCH (09:59)
[2017-12-03] MEDS: methylPREDNISolone SOD SUCC 40 MG/ML VL IV SCH ×2 (09:59→22:26)
[2017-12-03] MEDS: ENOXAPARIN SOD 60 MG/0.6 ML SYRINGE SC SCH (10:00)
[2017-12-03] MEDS: ASPirin 81 mg TAB PO SCH (10:00)
[2017-12-03] MEDS: NOREPINEPHRINE 16 MG/500ML KIT 500 ML IV SCH (11:30)
[2017-12-03] MEDS ORDERED: CLOPIDOGREL BISULFATE 75 MG TAB PO ONE (12:00)
[2017-12-03] MEDS: MIDAZOLAM DRIP 50 mg/50mL 50 ML IV SCH (12:02)
[2017-12-04] VITALS (103 sets, daily range): BP systolic 69–148; BP diastolic 24–95
[2017-12-04] MEDS: PHENYLEPHRINE IV 250 ML IV SCH ×3 (00:23→16:57)
[2017-12-04 03:51] LABS: Basophils # (auto) 0 uL; Basophils % (auto) 0.1 % (0.0-2.0); Eosinophils # (auto) 0 uL; Hemoglobin 15.1 g/dL (12.2-16.2); Lymphocytes # (auto) 0.4 uL; Mean Corpuscular Hemoglobin 30.5 pg (28.0-32.0); Mean Corpuscular Hgb Conc. 32.1 g/dL (32.0-36.0); Mean Corpuscular Volume 94.8 fL (80.0-100.0); Monocytes # (auto) 0.4 uL; Neutrophils # (auto) 12.2 uL; Neutrophils % (auto) 93.9 % (37.0-80.0); Platelet Count (auto) 329 10^3/uL (140-450); Red Blood Cells 4.96 10^6/uL (4.0-5.20); Red Cell Distribution Width 17.3 % (11.8-14.3)
[2017-12-04 03:54] LABS: Albumin 2.1 g/dL (3.4-5.0); BUN/Creatinine Ratio 6.6; Calcium 8.6 mg/dL (8.5-10.1); Potassium 5.3 mmol/L (3.5-5.1)
[2017-12-04] MEDS: PROPOFOL 100 ML IV SCH ×2 (04:00→23:35)
[2017-12-04] MEDS: PIPERACILLIN-TAZOB 2.25GM 50 ML IV SCH ×4 (04:06→21:49)
[2017-12-04 04:13] LABS: Bilirubin, Total 0.5 mg/dL (0.2-1.0)
[2017-12-04] MEDS: ACCU-CHEK COMFORT CURVE STRIP VI SCH ×4 (05:45→17:50)
[2017-12-04] MEDS: InsuLIN REG 1unit/0.01ml Soln (100units/ml) SC SCH ×4 (05:45→17:50)
[2017-12-04] MEDS: PANTOPRAZOLE 40 MG/10 ML VIAL IV SCH (10:52)
[2017-12-04] MEDS: methylPREDNISolone SOD SUCC 40 MG/ML VL IV SCH ×2 (10:52→21:49)
[2017-12-04] MEDS: ASPirin 81 mg TAB PO SCH (10:53)
[2017-12-04] MEDS: ENOXAPARIN SOD 60 MG/0.6 ML SYRINGE SC SCH (10:54)
[2017-12-04] MEDS: CLOPIDOGREL BISULFATE 75 MG TAB PO SCH (10:55)
[2017-12-04] MEDS ORDERED: SODIUM CHL 0.9% 1000 ML BAG XX ONE (12:00)
[2017-12-04] MEDS ORDERED: ALBUMIN 25% 50 ML IV ONE ×2 (13:15→13:30)
[2017-12-04] MEDS: NOREPINEPHRINE 16 MG/500ML KIT 500 ML IV SCH (13:15)
[2017-12-04] MEDS: MIDODRINE HCL 10 MG TAB PO SCH ×2 (13:18→17:50)
[2017-12-04] MEDS: MIDAZOLAM DRIP 50 mg/50mL 50 ML IV SCH (14:52)
[2017-12-04] MEDS ORDERED: IPRATROPIUM BROM 0.5 MG/2.5ML INH SOL ONE (15:52)
[2017-12-04] MEDS ORDERED: ALBUTEROL SULF 2.5 MG/0.5ML(0.5%) NEB SOLN ONE (15:52)
[2017-12-04] MEDS ORDERED: IPRATROPIUM BROM 0.5 MG/2.5ML INH SOL NEB ONE (16:00)
[2017-12-04] MEDS ORDERED: ALBUTEROL SULF 2.5 MG/0.5ML(0.5%) NEB SOLN NEB ONE (16:00)
[2017-12-04] MEDS ORDERED: PIPERACILLIN-TAZOB 0.75 GM in D5W 5% 50 ML IV SCH (18:15)
[2017-12-04] MEDS ORDERED: VANCOMYCIN 1GM/250ML 250 ML IV ONE (18:15)
[2017-12-05] VITALS (74 sets, daily range): BP systolic 62–165; BP diastolic 31–119
[2017-12-05] MEDS: PHENYLEPHRINE IV 250 ML IV SCH ×2 (01:14→09:31)
[2017-12-05 03:54] LABS: Basophils # (auto) 0 uL; Eosinophils # (auto) 0 uL; Hematocrit 37.9 % (36.0-46.0); Hemoglobin 12.2 g/dL (12.2-16.2); Lymphocytes # (auto) 0.4 uL; Lymphocytes % (auto) 4.7 % (10.0-50.0); Mean Corpuscular Hemoglobin 30.7 pg (28.0-32.0); Mean Corpuscular Hgb Conc. 32.2 g/dL (32.0-36.0); Mean Corpuscular Volume 95.2 fL (80.0-100.0); Monocytes # (auto) 0.4 uL; Monocytes % (auto) 4.5 % (0.0-12.0); Neutrophils # (auto) 8.1 uL; Neutrophils % (auto) 90.8 % (37.0-80.0); Platelet Count (auto) 178 10^3/uL (140-450); Red Blood Cells 3.98 10^6/uL (4.0-5.20); Red Cell Distribution Width 17.6 % (11.8-14.3); White Blood Cell 8.9 10^3/uL (4.4-10.8)
[2017-12-05 04:23] LABS: BUN/Creatinine Ratio 6.8; Calcium 8.6 mg/dL (8.5-10.1); Potassium 4.2 mmol/L (3.5-5.1)
[2017-12-05] MEDS ORDERED: AMIODARONE HCL 900 MG IV ONE (04:38)
[2017-12-05] MEDS ORDERED: AMIODARONE HCL (50 MG/ ML) 3 ML VIAL IV ONE (04:38)
[2017-12-05] MEDS ORDERED: AMIODARONE HCL 150 MG in D5W 5% 100 ML IV ONE (05:30)
[2017-12-05] MEDS ORDERED: AMIODARONE HCL 900 MG in DEXTROSE 500 ML IV SCH (05:38)
[2017-12-05] MEDS: MIDODRINE HCL 10 MG TAB PO SCH ×3 (06:00→17:33)
[2017-12-05] MEDS: InsuLIN REG 1unit/0.01ml Soln (100units/ml) SC SCH ×4 (06:00→17:26)
[2017-12-05] MEDS: ACCU-CHEK COMFORT CURVE STRIP VI SCH ×4 (06:21→17:25)
[2017-12-05] MEDS: PANTOPRAZOLE 40 MG/10 ML VIAL IV SCH (09:53)
[2017-12-05] MEDS: PIPERACILLIN-TAZOB 2.25GM 50 ML IV SCH ×2 (09:53→21:37)
[2017-12-05] MEDS: methylPREDNISolone SOD SUCC 40 MG/ML VL IV SCH (09:53)
[2017-12-05] MEDS: ENOXAPARIN SOD 60 MG/0.6 ML SYRINGE SC SCH (09:54)
[2017-12-05] MEDS: ASPirin 81 mg TAB PO SCH (09:54)
[2017-12-05] MEDS: CLOPIDOGREL BISULFATE 75 MG TAB PO SCH (09:54)
[2017-12-05] MEDS ORDERED: DIGOXIN (250MCG/ML) 2 ML AMPULE IV ONE (10:45)
[2017-12-05] MEDS ORDERED: KETOROLAC TROMETH 30 MG/ML 1ML VIAL IV ONE (10:45)
[2017-12-05] MEDS: AMIODARONE HCL 900 MG in DEXTROSE 500 ML IV SCH (11:42)
[2017-12-05] MEDS: NOREPINEPHRINE 16 MG/500ML KIT 500 ML IV SCH (14:19)
[2017-12-05] MEDS: MIDAZOLAM DRIP 50 mg/50mL 50 ML IV SCH (14:52)
[2017-12-05] MEDS: SEVELAMER 800 MG TAB PO SCH (19:06)
[2017-12-05] MEDS: APIXABAN 2.5 MG TAB PO SCH (21:37)
[2017-12-06] VITALS (35 sets, daily range): BP systolic 124–185; BP diastolic 53–100
[2017-12-06] MEDS: ACCU-CHEK COMFORT CURVE STRIP VI SCH ×5 (00:20→23:29)
[2017-12-06 04:21] LABS: Basophils # (auto) 0 uL; Basophils % (auto) 0.3 % (0.0-2.0); Eosinophils # (auto) 0 uL; Eosinophils % (auto) 0.2 % (0.0-7.0); Hematocrit 37.2 % (36.0-46.0); Hemoglobin 12.1 g/dL (12.2-16.2); Lymphocytes # (auto) 0.8 uL; Lymphocytes % (auto) 7.7 % (10.0-50.0); Mean Corpuscular Hemoglobin 31.3 pg (28.0-32.0); Mean Corpuscular Hgb Conc. 32.5 g/dL (32.0-36.0); Mean Corpuscular Volume 96.2 fL (80.0-100.0); Monocytes # (auto) 0.8 uL; Monocytes % (auto) 8.2 % (0.0-12.0); Neutrophils # (auto) 8.2 uL; Neutrophils % (auto) 83.6 % (37.0-80.0); Nucleated Red Blood Cells % 0.4 %; Platelet Count (auto) 190 10^3/uL (140-450); Red Blood Cells 3.87 10^6/uL (4.0-5.20); White Blood Cell 9.8 10^3/uL (4.4-10.8)
[2017-12-06 04:34] LABS: Albumin 2.6 g/dL (3.4-5.0); BUN/Creatinine Ratio 6.7; Bilirubin, Total 0.4 mg/dL (0.2-1.0); Calcium 8.4 mg/dL (8.5-10.1); Potassium 4.4 mmol/L (3.5-5.1); Total Protein 6.1 g/dL (6.4-8.2)
[2017-12-06] MEDS: InsuLIN REG 1unit/0.01ml Soln (100units/ml) SC SCH ×5 (05:34→23:29)
[2017-12-06] MEDS: MIDODRINE HCL 10 MG TAB PO SCH ×4 (06:02→18:00)
[2017-12-06] MEDS: AMIODARONE HCL 900 MG in DEXTROSE 500 ML IV SCH (06:51)
[2017-12-06] MEDS ORDERED: SODIUM CHL 0.9% 1000 ML BAG XX ONE (14:15)
[2017-12-06] MEDS: SEVELAMER 800 MG TAB PO SCH ×2 (14:46→18:30)
[2017-12-06] MEDS: APIXABAN 2.5 MG TAB PO SCH ×2 (14:46→23:22)
[2017-12-06] MEDS: PIPERACILLIN-TAZOB 2.25GM 50 ML IV SCH ×2 (14:47→23:24)
[2017-12-06] MEDS: methylPREDNISolone SOD SUCC 40 MG/ML VL IV SCH (14:47)
[2017-12-06] MEDS: ASPirin 81 mg TAB PO SCH (14:47)
[2017-12-06] MEDS: CLOPIDOGREL BISULFATE 75 MG TAB PO SCH (14:47)
[2017-12-06] MEDS ORDERED: hydrALAZINE HCL 20 MG/ML VL IV ONE (21:00)
[2017-12-07] VITALS (20 sets, daily range): BP systolic 117–190; BP diastolic 54–117
[2017-12-07 05:26] LABS: BUN/Creatinine Ratio 5.9; Calcium 8.3 mg/dL (8.5-10.1); Potassium 3.7 mmol/L (3.5-5.1)
[2017-12-07] MEDS: MIDODRINE HCL 10 MG TAB PO SCH ×3 (06:00→15:38)
[2017-12-07] MEDS: InsuLIN REG 1unit/0.01ml Soln (100units/ml) SC SCH ×3 (06:42→18:23)
[2017-12-07] MEDS: ACCU-CHEK COMFORT CURVE STRIP VI SCH ×3 (06:42→18:22)
[2017-12-07] MEDS: SEVELAMER 800 MG TAB PO SCH ×3 (08:34→18:22)
[2017-12-07] MEDS ORDERED: LOSARTAN POTASSIUM 50 MG TAB PO SCH (10:00)
[2017-12-07] MEDS ORDERED: DIGOXIN 0.125 MG TAB PO SCH (10:00)
[2017-12-07] MEDS: PIPERACILLIN-TAZOB 2.25GM 50 ML IV SCH ×2 (10:36→22:24)
[2017-12-07] MEDS: methylPREDNISolone SOD SUCC 40 MG/ML VL IV SCH (10:37)
[2017-12-07] MEDS: ASPirin 81 mg TAB PO SCH (10:37)
[2017-12-07] MEDS: CLOPIDOGREL BISULFATE 75 MG TAB PO SCH (10:37)
[2017-12-07] MEDS: APIXABAN 2.5 MG TAB PO SCH ×2 (10:37→22:24)
[2017-12-07] MEDS: LOSARTAN POTASSIUM 50 MG TAB PO SCH (22:26)
[2017-12-07] MEDS ORDERED: TEMAZEPAM 15 MG CAP PO ONE (23:30)
[2017-12-08] MEDS: ACCU-CHEK COMFORT CURVE STRIP VI SCH ×4 (00:05→18:00)
[2017-12-08] MEDS: InsuLIN REG 1unit/0.01ml Soln (100units/ml) SC SCH ×5 (00:09→18:00)
[2017-12-08] MEDS: MIDODRINE HCL 10 MG TAB PO SCH ×3 (06:00→18:00)
[2017-12-08 07:57] LABS: Basophils # (auto) 0 uL; Basophils % (auto) 0.2 % (0.0-2.0); Eosinophils # (auto) 0.1 uL; Eosinophils % (auto) 1.7 % (0.0-7.0); Hematocrit 40.7 % (36.0-46.0); Hemoglobin 13.2 g/dL (12.2-16.2); Lymphocytes # (auto) 0.6 uL; Mean Corpuscular Hemoglobin 30.9 pg (28.0-32.0); Mean Corpuscular Hgb Conc. 32.4 g/dL (32.0-36.0); Mean Corpuscular Volume 95.2 fL (80.0-100.0); Monocytes # (auto) 0.5 uL; Monocytes % (auto) 6.4 % (0.0-12.0); Neutrophils # (auto) 7.1 uL; Neutrophils % (auto) 84.7 % (37.0-80.0); Platelet Count (auto) 191 10^3/uL (140-450); Red Blood Cells 4.28 10^6/uL (4.0-5.20); Red Cell Distribution Width 17.3 % (11.8-14.3); White Blood Cell 8.4 10^3/uL (4.4-10.8)
[2017-12-08] MEDS: SEVELAMER 800 MG TAB PO SCH ×3 (08:00→18:26)
[2017-12-08 08:24] LABS: Albumin 2.8 g/dL (3.4-5.0); BUN/Creatinine Ratio 6.4; Bilirubin, Total 0.6 mg/dL (0.2-1.0); Calcium 8.6 mg/dL (8.5-10.1); Potassium 3.6 mmol/L (3.5-5.1); Total Protein 6.7 g/dL (6.4-8.2)
[2017-12-08] MEDS: PIPERACILLIN-TAZOB 2.25GM 50 ML IV SCH (09:46)
[2017-12-08] MEDS: methylPREDNISolone SOD SUCC 40 MG/ML VL IV SCH (09:46)
[2017-12-08] MEDS: ASPirin 81 mg TAB PO SCH (09:47)
[2017-12-08] MEDS: CLOPIDOGREL BISULFATE 75 MG TAB PO SCH (09:47)
[2017-12-08] MEDS: APIXABAN 2.5 MG TAB PO SCH (09:47)
[2017-12-08] MEDS ORDERED: DIGOXIN (250MCG/ML) 2 ML AMPULE IV SCH (10:00)
[2017-12-08 10:35] LABS: INR 1.19 (0.9-1.15); Partial Thromboplastin Time 29.9 sec (22.64-33.71)
[2017-12-08] MEDS ORDERED: TEMAZEPAM 15 MG CAP PO PRN (11:00)
[2017-12-08 11:50] VITALS: BP 149/71
[2017-12-08 15:50] VITALS: BP 152/73
[2017-12-08 19:50] VITALS: BP 172/79
[2017-12-08] MEDS: LOSARTAN POTASSIUM 50 MG TAB PO SCH (21:33)
[2017-12-08] MEDS: AMOXICILLIN/CLAVUL 875 MG TAB PO SCH (22:05)
[2017-12-09 00:35] VITALS: BP 108/67
[2017-12-09] MEDS: InsuLIN REG 1unit/0.01ml Soln (100units/ml) SC SCH ×5 (06:00→23:52)
[2017-12-09] MEDS: MIDODRINE HCL 10 MG TAB PO SCH ×3 (06:00→18:13)
[2017-12-09] MEDS: ACCU-CHEK COMFORT CURVE STRIP VI SCH ×5 (06:18→23:52)
[2017-12-09] MEDS: SEVELAMER 800 MG TAB PO SCH ×3 (08:32→18:13)
[2017-12-09 09:00] VITALS: BP 160/82
[2017-12-09] MEDS ORDERED: predniSONE 20 MG TAB PO SCH (10:00)
[2017-12-09] MEDS: ASPirin 81 mg TAB PO SCH (12:06)
[2017-12-09] MEDS: AMOXICILLIN/CLAVUL 875 MG TAB PO SCH ×2 (12:06→22:38)
[2017-12-09] MEDS: CLOPIDOGREL BISULFATE 75 MG TAB PO SCH (12:17)
[2017-12-09 12:35] VITALS: BP 110/71
[2017-12-09 18:00] VITALS: BP 152/67
[2017-12-09] MEDS: LOSARTAN POTASSIUM 50 MG TAB PO SCH (22:38)
[2017-12-09] MEDS: TEMAZEPAM 15 MG CAP PO PRN (22:42)
[2017-12-10 05:40] VITALS: BP 151/67
[2017-12-10] MEDS: MIDODRINE HCL 10 MG TAB PO SCH ×3 (06:00→17:32)
[2017-12-10] MEDS: InsuLIN REG 1unit/0.01ml Soln (100units/ml) SC SCH ×4 (06:00→23:31)
[2017-12-10] MEDS: ACCU-CHEK COMFORT CURVE STRIP VI SCH ×4 (06:04→23:31)
[2017-12-10] MEDS: SEVELAMER 800 MG TAB PO SCH ×3 (08:00→17:33)
[2017-12-10 09:00] VITALS: BP 157/72
[2017-12-10] MEDS ORDERED: predniSONE 20 MG TAB PO SCH (10:00)
[2017-12-10] MEDS: ASPirin 81 mg TAB PO SCH (11:26)
[2017-12-10] MEDS: CLOPIDOGREL BISULFATE 75 MG TAB PO SCH (11:26)
[2017-12-10] MEDS: AMOXICILLIN/CLAVUL 875 MG TAB PO SCH ×2 (11:26→22:18)
[2017-12-10 13:00] VITALS: BP 158/53
[2017-12-10] MEDS ORDERED: SODIUM CHL 0.9% 1000 ML BAG XX ONE (17:00)
[2017-12-10 17:45] VITALS: BP 198/83
[2017-12-10] MEDS: LABETALOL HCL 5 MG/ML ML 20ML VIAL IV PRN (18:24)
[2017-12-10 22:00] VITALS: BP 134/65
[2017-12-10] MEDS: LOSARTAN POTASSIUM 50 MG TAB PO SCH (22:18)
[2017-12-10] MEDS: TEMAZEPAM 15 MG CAP PO PRN (22:22)
[2017-12-11 05:00] VITALS: BP 155/70
[2017-12-11] MEDS: MIDODRINE HCL 10 MG TAB PO SCH ×2 (05:14→18:00)
[2017-12-11 05:54] LABS: Basophils # (auto) 0 uL; Basophils % (auto) 0.2 % (0.0-2.0); Eosinophils # (auto) 0.1 uL; Eosinophils % (auto) 1.1 % (0.0-7.0); Hematocrit 37.6 % (36.0-46.0); Hemoglobin 12.2 g/dL (12.2-16.2); Lymphocytes # (auto) 0.6 uL; Lymphocytes % (auto) 8.2 % (10.0-50.0); Mean Corpuscular Hemoglobin 31.4 pg (28.0-32.0); Mean Corpuscular Hgb Conc. 32.5 g/dL (32.0-36.0); Mean Corpuscular Volume 96.6 fL (80.0-100.0); Monocytes # (auto) 0.6 uL; Neutrophils # (auto) 6.2 uL; Neutrophils % (auto) 82.5 % (37.0-80.0); Platelet Count (auto) 188 10^3/uL (140-450); Red Blood Cells 3.89 10^6/uL (4.0-5.20); Red Cell Distribution Width 18.2 % (11.8-14.3); White Blood Cell 7.5 10^3/uL (4.4-10.8)
[2017-12-11] MEDS: ACCU-CHEK COMFORT CURVE STRIP VI SCH ×4 (06:15→23:38)
[2017-12-11] MEDS: InsuLIN REG 1unit/0.01ml Soln (100units/ml) SC SCH ×4 (06:15→23:38)
[2017-12-11 06:19] LABS: BUN/Creatinine Ratio 7.3; Calcium 8.4 mg/dL (8.5-10.1); Potassium 4.2 mmol/L (3.5-5.1)
[2017-12-11] MEDS: SEVELAMER 800 MG TAB PO SCH ×3 (08:00→17:43)
[2017-12-11 09:00] VITALS: BP 174/95
[2017-12-11] MEDS: ASPirin 81 mg TAB PO SCH (10:00)
[2017-12-11] MEDS: CLOPIDOGREL BISULFATE 75 MG TAB PO SCH (10:00)
[2017-12-11] MEDS: predniSONE 20 MG TAB PO SCH (10:39)
[2017-12-11] MEDS: AMOXICILLIN/CLAVUL 875 MG TAB PO SCH ×2 (10:39→21:53)
[2017-12-11] MEDS ORDERED: IOHEXOL 350 MG/ML 100ML IJ ONE (11:32)
[2017-12-11] MEDS ORDERED: LIDOCAINE 2%HCL (LOCAL ANESTH.) INJ 20ML MDV ONE (11:32)
[2017-12-11] MEDS ORDERED: ceFAZolin 1GM/50ML 50 ML IV ONE (11:51)
[2017-12-11] MEDS ORDERED: fentaNYL CITRATE 100 MCG/2 ML VL ONE (12:13)
[2017-12-11] MEDS ORDERED: VANCOMYCIN HCL 1000 MG VL ONE (12:13)
[2017-12-11] MEDS ORDERED: VANCOMYCIN 1GM/250ML 0 ML IV ONE (12:14)
[2017-12-11] MEDS ORDERED: MIDAZOLAM HCL 1MG/1ML-2 ML VIAL ONE (12:14)
[2017-12-11] MEDS ORDERED: PANTOPRAZOLE 40 MG TAB PO ONE (15:45)
[2017-12-11 18:29] VITALS: BP 156/62
[2017-12-11] MEDS: LOSARTAN POTASSIUM 50 MG TAB PO SCH (21:53)
[2017-12-11] MEDS: TEMAZEPAM 15 MG CAP PO PRN (21:54)
[2017-12-11 22:00] VITALS: BP 148/65
[2017-12-12 05:00] VITALS: BP 154/74
[2017-12-12] MEDS: LABETALOL HCL 5 MG/ML ML 20ML VIAL IV PRN (05:54)
[2017-12-12] MEDS: ACCU-CHEK COMFORT CURVE STRIP VI SCH (05:54)
[2017-12-12] MEDS: MIDODRINE HCL 10 MG TAB PO SCH (05:54)
[2017-12-12] MEDS: InsuLIN REG 1unit/0.01ml Soln (100units/ml) SC SCH (06:01)
[2017-12-12 06:34] LABS: Basophils # (auto) 0 uL; Basophils % (auto) 0.4 % (0.0-2.0); Eosinophils # (auto) 0.2 uL; Eosinophils % (auto) 2.7 % (0.0-7.0); Hematocrit 36.7 % (36.0-46.0); Hemoglobin 11.9 g/dL (12.2-16.2); Lymphocytes # (auto) 0.7 uL; Lymphocytes % (auto) 12.1 % (10.0-50.0); Mean Corpuscular Hemoglobin 31.2 pg (28.0-32.0); Mean Corpuscular Hgb Conc. 32.3 g/dL (32.0-36.0); Mean Corpuscular Volume 96.7 fL (80.0-100.0); Monocytes # (auto) 0.7 uL; Monocytes % (auto) 11.1 % (0.0-12.0); Neutrophils # (auto) 4.5 uL; Neutrophils % (auto) 73.7 % (37.0-80.0); Nucleated Red Blood Cells % 0.1 %; Platelet Count (auto) 163 10^3/uL (140-450); Red Cell Distribution Width 18.9 % (11.8-14.3); White Blood Cell 6.1 10^3/uL (4.4-10.8)
[2017-12-12 06:54] LABS: Potassium 4.2 mmol/L (3.5-5.1)
[2017-12-12 06:59] LABS: BUN/Creatinine Ratio 6.5; Calcium 8.4 mg/dL (8.5-10.1); Magnesium 2.9 mg/dL (1.6-2.6)
[2017-12-12] MEDS: SEVELAMER 800 MG TAB PO SCH (08:50)
[2017-12-12] MEDS ORDERED: TRAM50TA2 PO (10:00)
[2017-12-12] MEDS ORDERED: CHOL20002 PO (10:00)
[2017-12-12] MEDS ORDERED: ONDA4TAB5 PO (10:00)
[2017-12-12] MEDS ORDERED: PANTOPRAZOLE 40 MG TAB PO SCH (10:00)
[2017-12-12] MEDS: AMOXICILLIN/CLAVUL 875 MG TAB PO SCH (10:49)
[2017-12-12] MEDS: predniSONE 20 MG TAB PO SCH (10:49)
[2017-12-12] MEDS: ASPirin 81 mg TAB PO SCH (10:49)
[2017-12-12] MEDS: CLOPIDOGREL BISULFATE 75 MG TAB PO SCH (10:50)
[2017-12-12] MEDS ORDERED: ceFAZolin 1GM/50ML 50 ML IV ONE (12:00)
== END 2017-12-12 13:45 | disposition home health service (06) | DRG 280 ==
LOC: ER 12:51 → EDBD 12:51 → CATH 12:52 → ICU WEST 12:53 → DOU IN ICU 12-07 15:55 → TELE-WESTW 12-09 06:13
PROVIDERS: ADMIT Internal Medicine; ATTEND Internal Medicine
PROC: 0BH17EZ Insertion of Endotracheal Airway into Trachea, Via Natural or Artificial Opening (ICD-10-PCS; principal; 2017-12-02)
PROC: 5A1945Z Respiratory Ventilation, 24-96 Consecutive Hours (ICD-10-PCS; 2017-12-02)
PROC: 4A023N7 Measurement of Cardiac Sampling and Pressure, Left Heart, Percutaneous Approach (ICD-10-PCS; 2017-12-02)
PROC: B2111ZZ Fluoroscopy of Multiple Coronary Arteries using Low Osmolar Contrast (ICD-10-PCS; 2017-12-02)
PROC: B2151ZZ Fluoroscopy of Left Heart using Low Osmolar Contrast (ICD-10-PCS; 2017-12-02)
PROC: 06HN33Z Insertion of Infusion Device into Left Femoral Vein, Percutaneous Approach (ICD-10-PCS; 2017-12-02)
PROC: 5A1D70Z Performance of Urinary Filtration, Intermittent, Less than 6 Hours Per Day (ICD-10-PCS; 2017-12-04)
PROC: 5A1D70Z Performance of Urinary Filtration, Intermittent, Less than 6 Hours Per Day (ICD-10-PCS; 2017-12-06)
PROC: 5A1D70Z Performance of Urinary Filtration, Intermittent, Less than 6 Hours Per Day (ICD-10-PCS; 2017-12-09)
PROC: 5A1D70Z Performance of Urinary Filtration, Intermittent, Less than 6 Hours Per Day (ICD-10-PCS; 2017-12-11)
DX: I21.3 ST elevation (STEMI) myocardial infarction of unspecified site (principal); J96.00 Acute respiratory failure, unspecified whether with hypoxia or hypercapnia; R57.0 Cardiogenic shock; I13.2 Hypertensive heart and chronic kidney disease with heart failure and with stage 5 chronic kidney disease, or end stage renal disease; E44.0 Moderate protein-calorie malnutrition; E11.22 Type 2 diabetes mellitus with diabetic chronic kidney disease; N18.6 End stage renal disease; I42.9 Cardiomyopathy, unspecified; I48.0 Paroxysmal atrial fibrillation; I50.32 Chronic diastolic (congestive) heart failure; N25.81 Secondary hyperparathyroidism of renal origin; E11.51 Type 2 diabetes mellitus with diabetic peripheral angiopathy without gangrene; F41.9 Anxiety disorder, unspecified; E78.5 Hyperlipidemia, unspecified; I25.10 Atherosclerotic heart disease of native coronary artery without angina pectoris; I25.2 Old myocardial infarction; J44.9 Chronic obstructive pulmonary disease, unspecified; Z79.01 Long term (current) use of anticoagulants; Z79.4 Long term (current) use of insulin; Z79.82 Long term (current) use of aspirin; Z79.899 Other long term (current) drug therapy; Z82.49 Family history of ischemic heart disease and other diseases of the circulatory system; Z83.3 Family history of diabetes mellitus; Z85.038 Personal history of other malignant neoplasm of large intestine; Z86.711 Personal history of pulmonary embolism; Z87.891 Personal history of nicotine dependence; Z89.511 Acquired absence of right leg below knee; Z89.619 Acquired absence of unspecified leg above knee; Z95.5 Presence of coronary angioplasty implant and graft; Z95.810 Presence of automatic (implantable) cardiac defibrillator; Z99.2 Dependence on renal dialysis; Z99.81 Dependence on supplemental oxygen; Z88.8 Allergy status to other drugs, medicaments and biological substances; Z88.1 Allergy status to other antibiotic agents; Z88.5 Allergy status to narcotic agent; Z90.49 Acquired absence of other specified parts of digestive tract; Z98.41 Cataract extraction status, right eye; Z68.23 Body mass index [BMI] 23.0-23.9, adult
CPT/HCPCS: 31500; 36415; 36600; 71045; 71046; 80048; 80053; 80202; 82270; 82805; 82962; 83735; 84484; 85025; 85610; 85730; 86850; 86900; 86901; 87040; 87045; 87070; 87081; 87205; 87899; 90935; 93005; 93458; 94002; 94003; 94660; 96374; 96375; 97110; 97116; 97163; 97530; 99152; 99291; C1887; C9113; J0330; J0690; J1642; J1815; J2250; J2543; J2704; J7060

== ENCOUNTER 2017-12-27 16:57 | Inpatient (IN) | payer MEDICARE, MEDICAID ==
[~2017-12-27] VITALS: Ht 170.2 cm; Wt 57.6 kg
[~2017-12-27 16:57] MED LIST changes: +CHOL20002 PO; -CHOL20007 OR; -LACT20PA4 PO; +ONDA4TAB5 PO; -PRE5T PO; -TEMA30CA PO
[2017-12-27] MEDS ORDERED: SODIUM CHLORIDE 0.9% 500 ML IVB ONE (17:04)
[2017-12-27] MEDS: PHENYLEPHRINE INJ 20 MG in SODIUM CHL 0.9% 250 ML IV SCH (17:11)
[2017-12-27 18:50] LABS: Basophils # (auto) 0 uL; Basophils % (auto) 0.9 % (0.0-2.0); Eosinophils # (auto) 0.2 uL; Eosinophils % (auto) 3.7 % (0.0-7.0); Hematocrit 37.9 % (36.0-46.0); Hemoglobin 11.9 g/dL (12.2-16.2); Lymphocytes % (auto) 20.9 % (10.0-50.0); Mean Corpuscular Hemoglobin 30.3 pg (28.0-32.0); Mean Corpuscular Hgb Conc. 31.5 g/dL (32.0-36.0); Mean Corpuscular Volume 96.1 fL (80.0-100.0); Monocytes # (auto) 0.6 uL; Monocytes % (auto) 13.6 % (0.0-12.0); Neutrophils # (auto) 2.8 uL; Neutrophils % (auto) 60.9 % (37.0-80.0); Nucleated Red Blood Cells % 0.1 %; Platelet Count (auto) 170 10^3/uL (140-450); Red Blood Cells 3.94 10^6/uL (4.0-5.20); Red Cell Distribution Width 16.5 % (11.8-14.3); White Blood Cell 4.7 10^3/uL (4.4-10.8)
[2017-12-27 19:02] LABS: INR 1.34 (0.9-1.15); Partial Thromboplastin Time 30.6 sec (22.64-33.71); Prothrombin Time 14.7 sec (9.37-12.3)
[2017-12-27 19:08] LABS: Albumin 2.3 g/dL (3.4-5.0); BUN/Creatinine Ratio 3.3; Calcium 7.6 mg/dL (8.5-10.1); Magnesium 2.6 mg/dL (1.6-2.6); Potassium 3.9 mmol/L (3.5-5.1)
[2017-12-27 19:13] LABS: Bilirubin, Total 0.4 mg/dL (0.2-1.0); Total Protein 6.3 g/dL (6.4-8.2)
[2017-12-27 19:27] LABS: Lactic Acid w/Reflex 2.5 mmol/L (0.4-2.0)
[2017-12-27] MEDS ORDERED: DEXTROSE 50% SYRINGE 50 ML IV ONE (20:24)
[2017-12-27] MEDS ORDERED: NITROGLYCERIN 0.4 MG SL TAB SL PRN (21:00)
[2017-12-27] MEDS ORDERED: traMADol HCL 50 MG TAB PO PRN (21:00)
[2017-12-27] MEDS ORDERED: DEXTROSE (50%) 50ML SYRG IV PRN (21:00)
[2017-12-27] MEDS ORDERED: MORPHINE SULFATE 4 MG/ML SYR/VIAL IV PRN (21:00)
[2017-12-27] MEDS ORDERED: ALBUTEROL SULF 2.5 MG/0.5ML(0.5%) NEB SOLN NEB PRN (21:00)
[2017-12-27] MEDS ORDERED: ACETAMINOPHEN 325 MG TAB PO PRN (21:00)
[2017-12-27] MEDS ORDERED: LOPERAMIDE HCL 2 MG CAP PO PRN (21:45)
[2017-12-27] MEDS ORDERED: LOPERAMIDE HCL 2 MG CAP PO ONE (21:45)
[2017-12-27] MEDS ORDERED: MIDODRINE HCL 10 MG TAB PO SCH (22:00)
[2017-12-27 22:40] VITALS: BP 133/74
[2017-12-27] MEDS: CARVEDILOL 3.125 MG TAB PO SCH (22:52)
[2017-12-27 23:18] VITALS: BP 133/74
[2017-12-27] MEDS ORDERED: ENOXAPARIN SOD 60 MG/0.6 ML SYRINGE SC ONE (23:30)
[2017-12-27] MEDS ORDERED: TEMAZEPAM 15 MG CAP PO ONE (23:30)
[2017-12-27] MEDS ORDERED: cefTRIAXone 1GM/10ml IVPUSH 10 ML IV ONE (23:30)
[2017-12-28] VITALS: BP 115/63
[2017-12-28] MEDS ORDERED: TEMAZEPAM 15 MG CAP ONE (00:32)
[2017-12-28] MEDS: ONDANSETRON HCL 4 MG/2 ML VIAL IV PRN ×2 (00:53→23:32)
[2017-12-28] MEDS: PHENYLEPHRINE INJ 20 MG in SODIUM CHL 0.9% 250 ML IV SCH ×3 (01:33→18:13)
[2017-12-28 02:44] VITALS: BP 133/74
[2017-12-28 04:00] VITALS: BP 93/46
[2017-12-28] MEDS: ACCU-CHEK COMFORT CURVE STRIP VI SCH ×4 (05:47→17:37)
[2017-12-28] MEDS: InsuLIN REG 1unit/0.01ml Soln (100units/ml) SC SCH ×4 (05:48→17:37)
[2017-12-28 05:50] LABS: Basophils # (auto) 0 uL; Basophils % (auto) 0.9 % (0.0-2.0); Eosinophils # (auto) 0.1 uL; Eosinophils % (auto) 2.5 % (0.0-7.0); Hematocrit 38.1 % (36.0-46.0); Hemoglobin 12.1 g/dL (12.2-16.2); Lymphocytes % (auto) 19.4 % (10.0-50.0); Mean Corpuscular Hemoglobin 30.5 pg (28.0-32.0); Mean Corpuscular Hgb Conc. 31.9 g/dL (32.0-36.0); Mean Corpuscular Volume 95.9 fL (80.0-100.0); Monocytes # (auto) 0.9 uL; Monocytes % (auto) 16.1 % (0.0-12.0); Neutrophils # (auto) 3.3 uL; Neutrophils % (auto) 61.1 % (37.0-80.0); Nucleated Red Blood Cells % 0.2 %; Platelet Count (auto) 188 10^3/uL (140-450); Red Blood Cells 3.97 10^6/uL (4.0-5.20); Red Cell Distribution Width 16.3 % (11.8-14.3); White Blood Cell 5.4 10^3/uL (4.4-10.8)
[2017-12-28] MEDS ORDERED: MIDODRINE HCL 10 MG TAB PO SCH (06:00)
[2017-12-28 06:09] LABS: Albumin 2.3 g/dL (3.4-5.0); BUN/Creatinine Ratio 3.8; Calcium 7.8 mg/dL (8.5-10.1); Potassium 4.6 mmol/L (3.5-5.1)
[2017-12-28 06:18] LABS: Bilirubin, Total 0.4 mg/dL (0.2-1.0); Total Protein 5.9 g/dL (6.4-8.2)
[2017-12-28] MEDS: SEVELAMER 800 MG TAB PO SCH ×3 (08:00→18:00)
[2017-12-28] MEDS: CARVEDILOL 3.125 MG TAB PO SCH ×2 (09:32→23:23)
[2017-12-28] MEDS: MIDODRINE HCL 10 MG TAB PO SCH (09:37)
[2017-12-28] MEDS: PANTOPRAZOLE 40 MG TAB PO SCH (09:37)
[2017-12-28] MEDS: ENOXAPARIN SOD 100 MG/1 ML SYRINGE SC SCH (09:37)
[2017-12-28] MEDS: ASPirin 81 mg TAB PO SCH (09:37)
[2017-12-28] MEDS: APIXABAN 5 MG TAB PO SCH (09:37)
[2017-12-28] MEDS ORDERED: APIXABAN 5 MG TAB PO SCH (10:00)
[2017-12-28 12:00] VITALS: BP 127/57
[2017-12-28 16:00] VITALS: BP 111/54
[2017-12-28 20:00] VITALS: BP 132/55
[2017-12-28] MEDS: cefTRIAXone 1GM/10ml IVPUSH 10 ML IV SCH (23:22)
[2017-12-28] MEDS: ATORVASTATIN 20 MG TAB PO SCH (23:24)
[2017-12-29] VITALS (7 sets, daily range): BP systolic 101–148; BP diastolic 53–77
[2017-12-29] MEDS: ACCU-CHEK COMFORT CURVE STRIP VI SCH ×4 (00:14→17:44)
[2017-12-29] MEDS: PHENYLEPHRINE INJ 20 MG in SODIUM CHL 0.9% 250 ML IV SCH ×2 (02:33→10:53)
[2017-12-29] MEDS: InsuLIN REG 1unit/0.01ml Soln (100units/ml) SC SCH ×5 (05:48→18:04)
[2017-12-29 06:36] LABS: Basophils # (auto) 0 uL; Basophils % (auto) 0.9 % (0.0-2.0); Eosinophils # (auto) 0.2 uL; Eosinophils % (auto) 4.3 % (0.0-7.0); Hematocrit 38.8 % (36.0-46.0); Hemoglobin 12.4 g/dL (12.2-16.2); Lymphocytes # (auto) 0.5 uL; Lymphocytes % (auto) 9.1 % (10.0-50.0); Mean Corpuscular Hemoglobin 30.7 pg (28.0-32.0); Mean Corpuscular Volume 95.8 fL (80.0-100.0); Monocytes # (auto) 0.8 uL; Monocytes % (auto) 14.4 % (0.0-12.0); Neutrophils # (auto) 3.7 uL; Neutrophils % (auto) 71.3 % (37.0-80.0); Nucleated Red Blood Cells % 0.1 %; Platelet Count (auto) 199 10^3/uL (140-450); Red Blood Cells 4.05 10^6/uL (4.0-5.20); Red Cell Distribution Width 16.1 % (11.8-14.3); White Blood Cell 5.2 10^3/uL (4.4-10.8)
[2017-12-29 07:17] LABS: Albumin 2.3 g/dL (3.4-5.0); Bilirubin, Total 0.4 mg/dL (0.2-1.0); Calcium 7.8 mg/dL (8.5-10.1); Phosphorus 6.1 mg/dL (2.5-4.90); Potassium 4.7 mmol/L (3.5-5.1); Total Protein 5.6 g/dL (6.4-8.2)
[2017-12-29] MEDS: SEVELAMER 800 MG TAB PO SCH ×3 (08:50→18:25)
[2017-12-29] MEDS: ENOXAPARIN SOD 100 MG/1 ML SYRINGE SC SCH (11:32)
[2017-12-29] MEDS: APIXABAN 5 MG TAB PO SCH (11:33)
[2017-12-29] MEDS: ASPirin 81 mg TAB PO SCH (11:33)
[2017-12-29] MEDS: MIDODRINE HCL 10 MG TAB PO SCH (11:33)
[2017-12-29] MEDS: CARVEDILOL 3.125 MG TAB PO SCH ×2 (11:33→21:41)
[2017-12-29] MEDS: PANTOPRAZOLE 40 MG TAB PO SCH (11:34)
[2017-12-29] MEDS: cefTRIAXone 1GM/10ml IVPUSH 10 ML IV SCH (21:39)
[2017-12-29] MEDS: ATORVASTATIN 20 MG TAB PO SCH (21:39)
[2017-12-29] MEDS: TEMAZEPAM 15 MG CAP PO PRN (21:39)
[2017-12-30] MEDS: ACCU-CHEK COMFORT CURVE STRIP VI SCH ×5 (00:12→23:26)
[2017-12-30 04:00] VITALS: BP 134/63
[2017-12-30 05:45] LABS: Basophils # (auto) 0.1 uL; Basophils % (auto) 1.2 % (0.0-2.0); Eosinophils # (auto) 0.3 uL; Eosinophils % (auto) 5.3 % (0.0-7.0); Hematocrit 38.7 % (36.0-46.0); Hemoglobin 12.5 g/dL (12.2-16.2); Lymphocytes # (auto) 0.7 uL; Lymphocytes % (auto) 14.1 % (10.0-50.0); Mean Corpuscular Hemoglobin 30.6 pg (28.0-32.0); Mean Corpuscular Hgb Conc. 32.2 g/dL (32.0-36.0); Mean Corpuscular Volume 94.9 fL (80.0-100.0); Monocytes # (auto) 0.9 uL; Monocytes % (auto) 17.6 % (0.0-12.0); Neutrophils # (auto) 3.2 uL; Neutrophils % (auto) 61.8 % (37.0-80.0); Platelet Count (auto) 220 10^3/uL (140-450); Red Blood Cells 4.08 10^6/uL (4.0-5.20); Red Cell Distribution Width 16.3 % (11.8-14.3); White Blood Cell 5.2 10^3/uL (4.4-10.8)
[2017-12-30 06:06] LABS: Potassium 4.7 mmol/L (3.5-5.1)
[2017-12-30 06:08] LABS: Albumin 2.4 g/dL (3.4-5.0); BUN/Creatinine Ratio 4.3; Calcium 8.2 mg/dL (8.5-10.1)
[2017-12-30] MEDS: InsuLIN REG 1unit/0.01ml Soln (100units/ml) SC SCH ×5 (06:20→23:26)
[2017-12-30 06:23] LABS: Bilirubin, Total 0.5 mg/dL (0.2-1.0); Total Protein 6.1 g/dL (6.4-8.2)
[2017-12-30 08:00] VITALS: BP 143/68
[2017-12-30] MEDS: SEVELAMER 800 MG TAB PO SCH ×3 (08:40→17:59)
[2017-12-30] MEDS: MIDODRINE HCL 10 MG TAB PO SCH (10:21)
[2017-12-30] MEDS: ASPirin 81 mg TAB PO SCH (10:21)
[2017-12-30] MEDS: PANTOPRAZOLE 40 MG TAB PO SCH (10:21)
[2017-12-30] MEDS: APIXABAN 2.5 MG TAB PO SCH ×2 (10:21→21:11)
[2017-12-30] MEDS: CARVEDILOL 3.125 MG TAB PO SCH ×2 (10:22→21:11)
[2017-12-30 12:00] VITALS: BP 139/75
[2017-12-30 16:00] VITALS: BP 128/57
[2017-12-30 19:55] VITALS: BP 112/56
[2017-12-30] MEDS: ATORVASTATIN 20 MG TAB PO SCH (21:10)
[2017-12-30] MEDS: cefTRIAXone 1GM/10ml IVPUSH 10 ML IV SCH (21:10)
[2017-12-30] MEDS: TEMAZEPAM 15 MG CAP PO PRN (22:07)
[2017-12-30 23:14] VITALS: BP 132/69
[2017-12-31 04:33] VITALS: BP 134/74
[2017-12-31 05:22] LABS: Hematocrit 38.9 % (36.0-46.0); Hemoglobin 12.3 g/dL (12.2-16.2); Mean Corpuscular Hgb Conc. 31.6 g/dL (32.0-36.0); Mean Corpuscular Volume 97.9 fL (80.0-100.0); Platelet Count (auto) 208 10^3/uL (140-450); Red Blood Cells 3.97 10^6/uL (4.0-5.20); Red Cell Distribution Width 16.4 % (11.8-14.3); White Blood Cell 4.5 10^3/uL (4.4-10.8)
[2017-12-31 05:28] LABS: Band Neutrophils % (manual) 0; Basophils % (manual) 0 (0.0-2.0); Blast Cells 0; Metamyelocytes % 0; Myelocytes % 0; Promyelocytes % 0; Reactive Lymphocytes 0
[2017-12-31 05:33] LABS: Albumin 2.4 g/dL (3.4-5.0); BUN/Creatinine Ratio 4.3; Calcium 8.1 mg/dL (8.5-10.1); Potassium 5.3 mmol/L (3.5-5.1)
[2017-12-31 05:47] LABS: Bilirubin, Total 0.4 mg/dL (0.2-1.0); Total Protein 6.1 g/dL (6.4-8.2)
[2017-12-31] MEDS: ACCU-CHEK COMFORT CURVE STRIP VI SCH (05:47)
[2017-12-31] MEDS: InsuLIN REG 1unit/0.01ml Soln (100units/ml) SC SCH (05:47)
[2017-12-31 06:24] LABS: Eosinophils % (manual) 2 (0-7); Lymphocytes % (manual) 16 (10.0-50.0); Monocytes % (manual) 15 (0-12)
[2017-12-31 07:20] VITALS: BP 146/61
[2017-12-31 07:51] VITALS: BP 146/66
[2017-12-31] MEDS: SEVELAMER 800 MG TAB PO SCH (07:59)
[2017-12-31] MEDS: APIXABAN 2.5 MG TAB PO SCH (08:36)
[2017-12-31] MEDS: MIDODRINE HCL 10 MG TAB PO SCH (08:36)
[2017-12-31] MEDS: ASPirin 81 mg TAB PO SCH (08:37)
[2017-12-31] MEDS: PANTOPRAZOLE 40 MG TAB PO SCH (08:37)
[2017-12-31] MEDS: CARVEDILOL 3.125 MG TAB PO SCH (09:45)
== END 2017-12-31 10:03 | disposition short-term general hospital (02) | DRG 280 ==
LOC: EDBD 16:57 → ER 16:57 → TELE 16:58 → DOU IN ICU 22:17
PROVIDERS: ADMIT Nurse Practitioner; ATTEND Family Medicine
DX: I21.4 Non-ST elevation (NSTEMI) myocardial infarction (principal); I50.43 Acute on chronic combined systolic (congestive) and diastolic (congestive) heart failure; R57.0 Cardiogenic shock; E11.22 Type 2 diabetes mellitus with diabetic chronic kidney disease; E11.649 Type 2 diabetes mellitus with hypoglycemia without coma; I13.2 Hypertensive heart and chronic kidney disease with heart failure and with stage 5 chronic kidney disease, or end stage renal disease; I42.9 Cardiomyopathy, unspecified; I95.3 Hypotension of hemodialysis; I49.5 Sick sinus syndrome; N18.6 End stage renal disease; J44.1 Chronic obstructive pulmonary disease with (acute) exacerbation; I87.1 Compression of vein; Z99.2 Dependence on renal dialysis; Z98.61 Coronary angioplasty status; I25.10 Atherosclerotic heart disease of native coronary artery without angina pectoris; I48.0 Paroxysmal atrial fibrillation; D63.1 Anemia in chronic kidney disease; F41.9 Anxiety disorder, unspecified; I70.0 Atherosclerosis of aorta; E78.5 Hyperlipidemia, unspecified; J44.9 Chronic obstructive pulmonary disease, unspecified; Z80.0 Family history of malignant neoplasm of digestive organs; Z82.49 Family history of ischemic heart disease and other diseases of the circulatory system; Z83.3 Family history of diabetes mellitus; Z89.511 Acquired absence of right leg below knee; Z89.512 Acquired absence of left leg below knee; Z79.899 Other long term (current) drug therapy; Z98.51 Tubal ligation status; Z88.1 Allergy status to other antibiotic agents; Z88.8 Allergy status to other drugs, medicaments and biological substances; Z88.5 Allergy status to narcotic agent; Z79.01 Long term (current) use of anticoagulants; Z79.4 Long term (current) use of insulin; Z90.49 Acquired absence of other specified parts of digestive tract
CPT/HCPCS: 36415; 71045; 80053; 82962; 83605; 83735; 83880; 84100; 84484; 85007; 85025; 85027; 85610; 85730; 87040; 87081; 93005; 93306; 96361; 96365; 99291; J1815; J2405